=== PATIENT | female | born 1995 | race Caucasian/White ===

== ENCOUNTER 2021-11-07 15:35 | Outpatient (CLI) | payer SELFPAY ==
[2021-11-07] VITALS (13 sets, daily range): BP systolic 124–145; BP diastolic 65–90; PULSE 87–105; TEMP 37.2; O2SAT 98; BMI 38.7
[2021-11-07 17:44] LABS: Red Blood Cells-Urine 0 SEEN /hpf (0-5); White Blood Cells 0 SEEN /hpf (0-5)
[2021-11-07 17:46] LABS: Color, Urine Yellow (Yellow); Glucose, Dipstick Normal (Normal); Ketone-Dipstick Negative (Negative); Leukocyte Esterase-Dipstick Negative /ul (Negative); Nitrite-Dipstick Negative (Negative); Occult Blood-Urine Negative /ul (Negative); Protein-Dipstick Negative (Negative); Specific Gravity, Urine 1.015 (1.002-1.030); Urine Bilirubin Dipstick Negative (Negative); Urine Clarity Sl. Cloudy (Clear); Urine Urobilinogen Normal (Normal); Urine pH 6.5 (5.0 - 8.0)
[2021-11-07 17:47] LABS: Absolute Neutrophil Count 10.4 X10^3/uL (2.0-7.7); Basophil# 0.05 X10^3/uL; Basophil% 0.4 % (0-1); Eosinophil# 0.05 X10^3/uL; Eosinophils% 0.4 % (0-5); Hematocrit 38.3 % (37-47); Hemoglobin 13.5 g/dL (12.0-15.0); Lymphocyte % 12.8 % (19-41); Mean Corp Hgb Conc 35.2 g/dL (32-36); Mean Corpuscular Hgb 32.5 pg (27.0-32.0); Mean Corpuscular Volume 92.3 fL (81-99); Mean Platelet Vol. 11.4 fl (6.2-12.0); Monocyte# 0.94 X10^3/uL; Monocyte% 7.1 % (0-10); NRBC Flagged by Analyzer 0 % (0-5); Neutrophil # 10.41 X10^3/uL (2.7-7.7); Neutrophil % 78.2 % (47-70); Platelet Count 158 K/mm3 (150-450); RBC Distribution Width CV 12.8 % (11.6-14.6); RBC Distribution Width SD 43.2 fl (35.1-43.9); Red Blood Count 4.15 M/mm3 (4.2-5.4); White Blood Count 13.3 K/mm3 (4.4-11.0)
[2021-11-07 17:56] LABS: Mucous, Urine 1+ /hpf (<or=2+); Squamous Epithelial Cells - UA 0-5 SEEN /hpf (5-10)
[2021-11-07 17:57] LABS: Bacteria 1+ /hpf (None Seen)
[2021-11-07 18:06] LABS: Protein, Urine (Random) 13.2 mg/dL (<11.9); Protein:Creat Ratio 165 mg/g CRE (0-200)
[2021-11-07 18:32] LABS: AST(SGOT) 14 U/L (15-37); Alanine Aminotransfer ALT/SGPT 37 U/L (13-56); EST Glomerular Filtration Rate 158 mL/min (>60); Est Glom Filt Rate - Afr Amer 191 mL/min (>60); Estimated Creatinine Clearance 133.67 ml/min; Uric Acid 3.8 mg/dL (2.6-6.0)
[2021-11-07 19:17] LABS: HIV - WCH Non-Reactive (Nonreactive); Hepatitis B Surface Antigen Non-Reactive (Nonreactive); Hepatitis C Antibody Non-Reactive (Nonreactive)
[2021-11-08 17:21] LABS: 24 Hour Urine Protein 247.9 mg/24HR (<150 MG/24HR); 24HR. UA Prot. Total Volume 1850 mL; Urine Protein (24 Hour) 13.4 mg/dL (<11.9)
--- NOTE | 2021-11-09 11:17 | OB.TRI.PN_ITS ---
Progress Notes Progress Note: at 30 weeks 3 days presented to office to establish care. Limited care with iap displays analyst. Upon arrival to office blood pressure elevated 159/90. No headache, scotoma. No vaginal bleeding, fluid leakage or signs of labor. Patient states she was informed previously (prior to 2014) that she had essential HTN and possibly due to neurofibromatosis but thinks it is whitecoat HTN. Denies any other concerns. Sent for evaluation of blood pressure and serial blood pressure monitoring, preeclampsia labs, and further evaluation. Laboratory Studies: Laboratory Tests 11/07/21 11/07/21 11/07/21 Range/Units 17:10 17:10 17:10 WBC (4.4-11.0) K/mm3 RBC (4.2-5.4) M/mm3 Hgb (12.0-15.0) g/dL Hct (37-47) % MCV (81-99) fL MCH (27.0-32.0) pg MCHC (32-36) g/dL RDW Std Deviation (35.1-43.9) fl RDW Coeff of Jose (11.6-14.6) % Plt Count (150-450) K/mm3 MPV (6.2-12.0) fl Immature Gran % (Auto) (0.0-0.9) % Neut % (Auto) (47-70) % Lymph % (Auto) (19-41) % [place] % (Auto) (0-10) % Eos % (Auto) (0-5) % Baso % (Auto) (0-1) % Absolute Neuts (auto) (2.0-7.7) X10^3/uL Absolute Lymphs (auto) (0.83-4.51) X10^3/uL Nucleated RBC % (0-5) % Creatinine 0.50 L (0.55-1.02) mg/dL Estim Creat Clear Calc 133.67 ml/min Est GFR (MDRD) Af Amer 191 (>60) mL/min Est GFR (MDRD) Non-Af 158 (>60) mL/min Uric Acid 3.8 (2.6-6.0) mg/dL AST 14 L (15-37) U/L ALT 37 (13-56) U/L Urine Color (Yellow) Urine Clarity (Clear) Urine pH (5.0 - 8.0) Ur Specific Viola (1.002-1.030) Urine Protein (Negative) mg/dl Urine Glucose (UA) (Normal) mg/dl Urine Ketones (Negative) mg/dl Urine Occult Blood (Negative) /ul Urine Nitrite (Negative) Urine Bilirubin (Negative) mg/dL Urine Urobilinogen (Normal) mg/dl Ur Leukocyte Esterase (Negative) /ul Urine RBC (0-5) /hpf Urine WBC (0-5) /hpf Ur Squamous Epith Cells (5-10) /hpf Urine Bacteria (None Seen) /hpf Urine Mucus (<or=2+) /hpf U Random Total Protein 13.2 H (<11.9) mg/dL Urine Collection Time (24.0) HOURS Timed Urine Volume mL Urine Creatinine 80.10 (NO RANGE EST.) mg/dL Ur Total Protein 24 Hr (<150 MG/24HR) mg/24HR Protein/Creatinin Ratio 165 (0-200) mg/g CRE Urine Total Protein (<11.9) mg/dL Hep Bs Antigen Non-Reactive (Nonreactive) Hepatitis C Antibody Non-Reactive (Nonreactive) HIV 1&2 Antibody Non-Reactive (Nonreactive) Blood Type Antibody Screen 11/07/21 11/07/21 11/07/21 Range/Units 17:10 17:10 17:10 WBC 13.3 H (4.4-11.0) K/mm3 RBC 4.15 L (4.2-5.4) M/mm3 Hgb 13.5 (12.0-15.0) g/dL Hct 38.3 (37-47) % MCV 92.3 (81-99) fL MCH 32.5 H (27.0-32.0) pg MCHC 35.2 (32-36) g/dL RDW Std Deviation 43.2 (35.1-43.9) fl RDW Coeff of Jose 12.8 (11.6-14.6) % Plt Count 158 (150-450) K/mm3 MPV 11.4 (6.2-12.0) fl Immature Gran % (Auto) 1.100 H (0.0-0.9) % Neut % (Auto) 78.2 H (47-70) % Lymph % (Auto) 12.8 L (19-41) % [place] % (Auto) 7.1 (0-10) % Eos % (Auto) 0.4 (0-5) % Baso % (Auto) 0.4 (0-1) % Absolute Neuts (auto) 10.4 H (2.0-7.7) X10^3/uL Absolute Lymphs (auto) 1.70 (0.83-4.51) X10^3/uL Nucleated RBC % 0 (0-5) % Creatinine (0.55-1.02) mg/dL Estim Creat Clear Calc ml/min Est GFR (MDRD) Af Amer (>60) mL/min Est GFR (MDRD) Non-Af (>60) mL/min Uric Acid (2.6-6.0) mg/dL AST (15-37) U/L ALT (13-56) U/L Urine Color Yellow (Yellow) Urine Clarity Sl. Cloudy (Clear) Urine pH 6.5 (5.0 - 8.0) Ur Specific Viola 1.015 (1.002-1.030) Urine Protein Negative (Negative) mg/dl Urine Glucose (UA) Normal (Normal) mg/dl Urine Ketones Negative (Negative) mg/dl Urine Occult Blood Negative (Negative) /ul Urine Nitrite Negative (Negative) Urine Bilirubin Negative (Negative) mg/dL Urine Urobilinogen Normal (Normal) mg/dl Ur Leukocyte Esterase Negative (Negative) /ul Urine RBC 0 SEEN (0-5) /hpf Urine WBC 0 SEEN (0-5) /hpf Ur Squamous Epith Cells 0-5 SEEN (5-10) /hpf Urine Bacteria 1+ (None Seen) /hpf Urine Mucus 1+ (<or=2+) /hpf U Random Total Protein (<11.9) mg/dL Urine Collection Time (24.0) HOURS Timed Urine Volume mL Urine Creatinine (NO RANGE EST.) mg/dL Ur Total Protein 24 Hr (<150 MG/24HR) mg/24HR Protein/Creatinin Ratio (0-200) mg/g CRE Urine Total Protein (<11.9) mg/dL Hep Bs Antigen (Nonreactive) Hepatitis C Antibody (Nonreactive) HIV 1&2 Antibody (Nonreactive) Blood Type A POSITIVE Antibody Screen NEGATIVE 11/07/21 Range/Units 16:00 WBC (4.4-11.0) K/mm3 RBC (4.2-5.4) M/mm3 Hgb (12.0-15.0) g/dL Hct (37-47) % MCV (81-99) fL MCH (27.0-32.0) pg MCHC (32-36) g/dL RDW Std Deviation (35.1-43.9) fl RDW Coeff of Jose (11.6-14.6) % Plt Count (150-450) K/mm3 MPV (6.2-12.0) fl Immature Gran % (Auto) (0.0-0.9) % Neut % (Auto) (47-70) % Lymph % (Auto) (19-41) % [place] % (Auto) (0-10) % Eos % (Auto) (0-5) % Baso % (Auto) (0-1) % Absolute Neuts (auto) (2.0-7.7) X10^3/uL Absolute Lymphs (auto) (0.83-4.51) X10^3/uL Nucleated RBC % (0-5) % Creatinine (0.55-1.02) mg/dL Estim Creat Clear Calc ml/min Est GFR (MDRD) Af Amer (>60) mL/min Est GFR (MDRD) Non-Af (>60) mL/min Uric Acid (2.6-6.0) mg/dL AST (15-37) U/L ALT (13-56) U/L Urine Color (Yellow) Urine Clarity (Clear) Urine pH (5.0 - 8.0) Ur Specific Viola (1.002-1.030) Urine Protein (Negative) mg/dl Urine Glucose (UA) (Normal) mg/dl Urine Ketones (Negative) mg/dl Urine Occult Blood (Negative) /ul Urine Nitrite (Negative) Urine Bilirubin (Negative) mg/dL Urine Urobilinogen (Normal) mg/dl Ur Leukocyte Esterase (Negative) /ul Urine RBC (0-5) /hpf Urine WBC (0-5) /hpf Ur Squamous Epith Cells (5-10) /hpf Urine Bacteria (None Seen) /hpf Urine Mucus (<or=2+) /hpf U Random Total Protein (<11.9) mg/dL Urine Collection Time 24.0 (24.0) HOURS Timed Urine Volume 1850 mL Urine Creatinine (NO RANGE EST.) mg/dL Ur Total Protein 24 Hr 247.9 H (<150 MG/24HR) mg/24HR Protein/Creatinin Ratio (0-200) mg/g CRE Urine Total Protein 13.4 H (<11.9) mg/dL Hep Bs Antigen (Nonreactive) Hepatitis C Antibody (Nonreactive) HIV 1&2 Antibody (Nonreactive) Blood Type Antibody Screen Assessment & Plan (1) Chronic hypertension affecting : (2) Limited care: PLAN: Plan 1) PN labs, non completed this 2) preeclampsia labs normal. Will complete 24 hr urine 3) BP mild range. Will check BP at home and return to office next week 4) Preeclampsia reviewed and when to call by nursing staff 5) D/C home. Plan of care reviewed with
[2021-11-10 08:37] LABS: Rubella IgG Reactive (Nonreactive); Syphilis Antibodies Non-reactive
== END 2021-11-07 18:50 | disposition home or self-care (01) ==
LOC: WPOUT 15:53 → WP 15:54
PROVIDERS: Visit Provider Advanced Practice Midwife
DX: O10.913 Unspecified pre-existing hypertension complicating pregnancy, third trimester (principal); O09.33 Supervision of pregnancy with insufficient antenatal care, third trimester; Z3A.30 30 weeks gestation of pregnancy
CPT/HCPCS: 36415; 59025; 59050; 81001; 82565; 82570; 84156; 84450; 84460; 84550; 85025; 86703; 86762; 86780; 86803; 86850; 86900; 86901; 87340; 99218; G0378

== ENCOUNTER 2021-12-30 16:00 | Inpatient (IN) | payer SELFPAY ==
[2021-12-30] VITALS (17 sets, daily range): BP systolic 126–158; BP diastolic 61–100; PULSE 90–126; TEMP 36.6–36.8; O2SAT 98–99; BMI 38.5
[2021-12-30] MEDS: Lactated Ringers 1,000 ML 50 ML IV (14:25)
[2021-12-30 15:51] LABS: Hematocrit 41.3 % (37-47); Hemoglobin 14.3 g/dL (12.0-15.0); Mean Corp Hgb Conc 34.6 g/dL (32-36); Mean Corpuscular Hgb 31.8 pg (27.0-32.0); Mean Platelet Vol. 10.8 fl (6.2-12.0); Platelet Count 207 K/mm3 (150-450); RBC Distribution Width CV 12.5 % (11.6-14.6); Red Blood Count 4.49 M/mm3 (4.2-5.4); White Blood Count 14.3 K/mm3 (4.4-11.0)
[2021-12-30 16:06] LABS: AST(SGOT) 19 U/L (15-37); Alanine Aminotransfer ALT/SGPT 25 U/L (13-56); Creatinine, Serum 0.76 mg/dL (0.55-1.02); EST Glomerular Filtration Rate 97 mL/min (>60); Est Glom Filt Rate - Afr Amer 117 mL/min (>60); Estimated Creatinine Clearance 87.94 ml/min; Uric Acid 4.8 mg/dL (2.6-6.0)
--- NOTE | 2021-12-30 16:42 | PCM.HP.OB ---
HPI - General General Date of Admission: 12/30/21 HPI Narrative KEITH HUSBANDS, is a 26 F who presents at 38 weeks for medically indicated induction of labor for chronic hypertension. Was planning home but blood pressure continuing to increase at home. Seen in office today and BP 180/96 and sent for induction of labor. History complicated by chronic hypertension, neurofibromatosis and limited care. Has been seeing mosaic floor layer for most of and one visit for co-care. [facility] Medical History (Updated 12/30/21 @ 18:32 by Maine Ricks) Chronic hypertension Neurofibromatosis Home Medications ascorbate [id number] 1,000 mg oral powder effervescent pakt (Vit C(ascorb.calcium)(mv-mins)) 1 ea PO DAILY pregancy 11/07/21 [History Last Taken 12/30/21 06:00] docosahexaenoic acid 200 mg capsule 200 mg PO BID 11/07/21 [History Last Taken 12/30/21 06:00] lactobacillus combination no.4 3 billion cell capsule (Probiotic) 3,000 mmu cells PO DAILY 11/07/21 [History Last Taken 12/30/21 06:00] magnesium 4 tab PO DAILY 11/07/21 [History Last Taken 11/07/21 11:30 1 tab] milk thistle 200 mg capsule 300 mg PO QHS liver 11/07/21 [History Last Taken 12/30/21 06:00] prenat.vits,sarai,xxz-kjkj-upmmj 3 tab PO DAILY 11/07/21 [History Last Taken 12/30/21 06:00] vit D3-folic acid-vit B2-B6-B12 2,000 unit-800 mcg-0.32 mg tablet 2 tab PO DAILY 11/07/21 [History Last Taken 12/30/21 06:00] [id number] 18 mg-10 mg-45 mg-5 mg-250 mg tablet 1 tab PO DAILY 11/07/21 [History Last Taken 12/30/21 06:00] Allergy/AdvReac Type Severity Reaction Status Date / Time Sulfa (Sulfonamide Allergy Rash Verified 12/30/21 15:18 Antibiotics) Surgical History (Updated 12/30/21 @ 16:17 by Maine Ricks) History of surgery Social History Smoking Status: Never smoker History Elective abortions Hx Para 0 Spontaneous abortions Hx # Term Pregnancies Ectopic pregnancies Hx # Pregnancies Multiple births # of living children NST FHR Rate Baby A Baseline: 145 Variability:: Moderate Accelerations:: 15 x 15 Decelerations:: None FHR Category:: Category I Uterine Activity:: None ROS Constitutional Constitutional: Reports systems reviewed and no addt'l complaints, except as documented; Denies headache(s) Eyes Eyes: Denies acute decrease in peripheral vision, blurry vision or change in vision ENT HEENT: Reports systems reviewed and no addt'l complaints, except as documented Cardiovascular Cardiovascular: Denies chest pain or dizziness Respiratory/Chest Respiratory/Chest: Denies cough, dyspnea, dyspnea on exertion, shortness of breath at rest or shortness of breath with exertion Gastrointestinal Gastrointestinal: Denies abdominal pain, diarrhea, nausea or vomiting Genitourinary Genitourinary: Denies abdominal discomfort Musculoskeletal Musculoskeletal: Denies limited range of motion Integumentary Integumentary: Reports systems reviewed and no addt'l complaints, except as documented Neurologic Neurologic: Reports systems reviewed and no addt'l complaints, except as documented Psychiatric Psychiatric: Reports systems reviewed and no addt'l complaints, except as documented Endocrine Endocrinology: Reports systems reviewed and no addt'l complaints, except as documented Hematologic/Lymphatic Hematologic/Lymphatic: Reports systems reviewed and no addt'l complaints, except as documented Allergic/Immunologic Allergic/Immunologic: Reports systems reviewed and no addt'l complaints, except as documented Vital Signs Vital Signs Vital Signs: 12/30/21 14:52 12/30/21 14:54 12/30/21 14:54 Temperature 98.2 F Pulse Rate 116 H Blood Pressure 158/87 H BP Systolic 158 BP Diastolic 87 12/30/21 15:06 12/30/21 15:06 12/30/21 15:22 Temperature Pulse Rate 116 H Blood Pressure 151/90 H 135/85 H BP Systolic 151 135 BP Diastolic 90 85 12/30/21 15:22 12/30/21 15:52 12/30/21 15:52 Temperature Pulse Rate 113 H 116 H Blood Pressure 144/100 H BP Systolic 144 BP Diastolic 100 12/30/21 15:54 12/30/21 15:54 12/30/21 16:06 Temperature Pulse Rate 126 H Blood Pressure 138/93 H 145/88 H BP Systolic 138 145 BP Diastolic 93 88 12/30/21 16:06 12/30/21 16:21 12/30/21 16:21 Temperature Pulse Rate 105 H 104 H Blood Pressure 149/83 H BP Systolic 149 BP Diastolic 83 12/30/21 16:36 12/30/21 16:36 Temperature Pulse Rate 108 H Blood Pressure 140/95 H BP Systolic 140 BP Diastolic 95 Weight Weight: 210 lb 15.718 oz Body Mass Index (BMI) 38.5 Physical Exam Const alert and oriented x3 General Appearance: cooperative Orientation / Consciousness: awake, oriented to person, oriented to place and oriented to time Exam Limitations: no limitations HEENT normocephalic Head and Scalp: normal to inspection, normocephalic and atraumatic Face and Sinus: normal facial exam Eyes General Eye: normal appearance of both eyes Neck full ROM Chest Chest: symmetrical chest wall rise Resp normal respiratory effort and normal air movement Auscultation: clear to auscultation bilaterally Cardio regular rate, regular rhythm, S1 normal heart sound, S2 normal heart sound, no murmurs, no rub, no gallops and no clicks GI normal to inspection, nondistended, normoactive bowel sounds and non-tender appearance of the vagina normal Bladder / Kidney Exam: no CVA tenderness Back/Spine normal ROM Extremity normal to inspection and full ROM Skin no rashes or lesions noted Neuro oriented x3, CN's II-XII intact bilaterally and moves all extremities Sensorium / Orientation: awake, alert and oriented to person Motor Exam: clonus absent Deep Tendon Reflexes: Rt Patellar (L4): 2+ and Lt Patellar (L4): 2+ Labs Labs Labs: Blood Type A POSITIVE Antibody Screen NEGATIVE Hct 41.3 % (37-47) Hgb 14.3 g/dL (12.0-15.0) Syphilis Total Ab Non-reactive Rubella IgG Antibody Reactive (Nonreactive) Hep Bs Antigen Non-Reactive (Nonreactive) HIV 1&2 Antibody Non-Reactive (Nonreactive) GBS in urine positive Declined GC/CT testing 2hr test completed per patient and normal on 09/17/21, do not have results. Assessment & Plan (1) Chronic hypertension affecting : (2) Limited care: (3) Neurofibromatosis, peripheral, NF1: PLAN: Plan 1) Admit to labor and delivery 2) Routine labs 3) Preeclampsia labs CMP, CBC, uric acid, LDH and urine P/C ratio 4) Continuous EFM 5) Recommend cytotec with main for cervical ripening and then pitocin per protocol. Unable to place main due to dilation. PO cytotec at this time. 6) Epidural for pain management if blood pressure remain elevated 7) GBS positive, patient informed refusal after discussing risks of untreated GBS, risks to baby and possible . 8) notified of admission and plan of care at this time.
[2021-12-30] MEDS: miSOPROStol 25 MCG TABLET PO ×2 (17:43→22:16)
[2021-12-30 18:37] LABS: Protein, Urine (Random) 29.2 mg/dL (<11.9); Protein:Creat Ratio 138 mg/g CRE (0-200)
[2021-12-30 20:06] LABS: Chlamydia Trachomatis by PCR Negative (Negative); Neisserai gonorrhoeae by PCR Negative (Negative); Probe Check PASS; Sample Adequacy Control PASS; Specimen Processing Control PASS
[2021-12-31] VITALS (48 sets, daily range): BP systolic 117–177; BP diastolic 60–100; PULSE 82–111; TEMP 36.2–37.1; O2SAT 93–100
[2021-12-31] MEDS: miSOPROStol 25 MCG TABLET PO (04:30)
--- NOTE | 2021-12-31 05:09 | NURSING ---
COVID testing discussed with pt. Pt would like to refuse testing at this time
[2021-12-31] MEDS: Oxytocin 15 Units/NS 250ml 15 UNITS/250 ML IV.SOLN 2 UNITS IV (08:40)
[2021-12-31] MEDS: 0.9% Normal Saline Single 100 ML IV.SOLN. INTRA-UTER (08:45)
[2021-12-31] MEDS: Lactated Ringers 1,000 ML 50 ML IV (08:46)
--- NOTE | 2021-12-31 09:59 | PCM.PN.OB ---
Subjective Subjective Coping well in bed. Rested through night. at bedside. Objective Data Objective Data Vital Signs: Vital Signs Temp Pulse BP Pulse Ox 97.3 F L 92 163/96 H 98 12/31/21 09:53 12/31/21 09:53 12/31/21 09:53 12/31/21 09:53 Weight: 210 lb 15.718 oz Body Mass Index (BMI) 38.5 Intake & Output: Intake and Output for Last 24 Hours 12/29/21 12/30/21 12/31/21 23:59 23:59 23:59 Intake Total 919.24 / 919.24 Balance 919.24 / 919.24 Lab / Micro Data Result Diagrams: 12/30/21 13:40 12/30/21 13:40 Labs: Laboratory Results - last 24 hr 12/30/21 13:40: WBC 14.3 H, RBC 4.49, Hgb 14.3, Hct 41.3, MCV 92.0, MCH 31.8, MCHC 34.6, RDW Std Deviation 42.0, RDW Coeff of Jose 12.5, Plt Count 207, MPV 10.8 12/30/21 13:40: Creatinine 0.76, Estim Creat Clear Calc 87.94, Est GFR (MDRD) Af Amer 117, Est GFR (MDRD) Non-Af 97, Uric Acid 4.8, AST 19, ALT 25 12/30/21 16:03: Blood Type A POSITIVE, Antibody Screen NEGATIVE 12/30/21 18:00: U Random Total Protein 29.2 H, Urine Creatinine 211.00, Protein/Creatinin Ratio 138 12/30/21 18:00: Chlam trachomat DNA PCR Negative, N.gonorrhoeae DNA (PCR) Negative Physical Exam Narrative 1cm/50%/-4. Stokes catheter inserted transcervically with stylus. Tolerated well. NST FHR Rate Baby A Baseline: 155 Variability:: Moderate Accelerations:: 15 x 15 Decelerations:: Variable FHR Category:: Category II Uterine Activity:: Irregular Assessment & Plan (1) Chronic hypertension affecting : (2) Encounter for induction of labor: PLAN: Plan 1) Stokes with pitocin for management. No cytotec due to contractions and variable decels. Category 2 FHT 2) Pain management upon request 3) notified of patient status
--- NOTE | 2021-12-31 12:42 | PCM.PN.BLA ---
Progress Note pt seen in room- up ambulating- states pain better when moving. main out. FHR Category 1. plan to continue pitocin. Pt prefers no AROM unless necessary. not planning epidural unless needed.
[2021-12-31] MEDS: LACTATED RINGERS 500 ML 999 ML IV ×2 (15:39→19:40)
--- NOTE | 2021-12-31 20:10 | PN.OBGYN_ITS ---
Subjective Subjective Resting in bed with substation designer and . Breathing through contractions. Requesting epidural for pain management Objective Data Objective Data Vital Signs: Vital Signs Temp Pulse BP Pulse Ox 98.2 F 105 H 147/93 H 99 12/31/21 19:05 12/31/21 20:07 12/31/21 19:05 12/31/21 20:07 Weight: 210 lb 15.718 oz Body Mass Index (BMI) 38.5 Intake & Output: Intake and Output for Last 24 Hours 12/29/21 12/30/21 12/31/21 23:59 23:59 23:59 Intake Total 2840.24 / 2840.24 Balance 2840.24 / 2840.24 Lab / Micro Data Result Diagrams: 12/30/21 13:40 12/30/21 13:40 NST FHR Rate Baby A Baseline: 155 Variability:: Moderate Accelerations:: 15 x 15 Decelerations:: Variable FHR Category:: Category II Uterine Activity:: Every 2-3 minutes, strong Assessment & Plan (1) Encounter for induction of labor: (2) Chronic hypertension affecting : PLAN: Plan 1) Pitocin per policy 2) Epidural per request 3) Positional changes 4) BP mild range 5) notified of patient status
[2021-12-31] MEDS: 0.9% Saline Lock 10 ML Syringe IV (20:13)
[2021-12-31] MEDS: Ondansetron 4 MG/2 ML Vial IV (20:13)
[2021-12-31] MEDS: fentaNYL-bupivacaine (epidural) 100 ML BAG EPIDURAL (20:30)
[2021-12-31] MEDS: Lactated Ringers 1,000 ML 200 ML IV (23:55)
[2022-01-01] VITALS (102 sets, daily range): BP systolic 105–166; BP diastolic 54–89; PULSE 91–132; RESP 14–16; TEMP 36.3–37.4; O2SAT 92–100
[2022-01-01] MEDS: fentaNYL-bupivacaine (epidural) 100 ML BAG EPIDURAL ×4 (00:16→17:06)
[2022-01-01] MEDS: LACTATED RINGERS 500 ML 999 ML IV (02:00)
--- NOTE | 2022-01-01 05:50 | NURSING ---
Primary RN discussed needing to obtain urine and meconium sample from for toxicology testing due to patient never having a toxicology screening. Patient was a transfer of care from external coffee shop manager. Patient is declining infant toxicology at this time. Primary RN reinforced education. Dr. Valencia supervising broker updated.
[2022-01-01] MEDS: Lactated Ringers 1,000 ML 200 ML IV ×3 (06:38→18:31)
[2022-01-01] MEDS: Penicillin G 3,000,000 Units 50 ML 100 UNITS IV ×4 (06:39→18:53)
--- NOTE | 2022-01-01 09:24 | PCM.PN.BLA ---
Progress Note AROM performed- CLEAR FLUID. /-3. IUPC placed. Narrow pelvis noted.
[2022-01-01] MEDS: Oxytocin 15 Units/NS 250ml 15 UNITS/250 ML IV.SOLN 6 UNITS IV (12:48)
--- NOTE | 2022-01-01 16:32 | PN.OBGYN_ITS ---
Subjective Subjective Patient comfortable with epidural Objective Data Objective Data Vital Signs: Vital Signs Temp Pulse BP Pulse Ox 98.1 F 103 H 140/84 H 99 01/01/22 16:02 01/01/22 16:02 01/01/22 16:02 01/01/22 15:14 Weight: 210 lb 15.718 oz Body Mass Index (BMI) 38.5 Intake & Output: Intake and Output for Last 24 Hours 12/30/21 12/31/21 01/01/22 23:59 23:59 23:59 Intake Total 4035.91 / 4035.91 2892.77 / 2892.77 Output Total 950 / 950 Balance 4035.91 / 4035.91 1942.77 / 1942.77 Lab / Micro Data Result Diagrams: 12/30/21 13:40 12/30/21 13:40 Physical Exam Narrative: cvx - 4/90/-2 NST FHR Rate Baby A Baseline: 135 Variability:: Moderate Accelerations:: 15 x 15 Decelerations:: Variable Uterine Activity:: Q 2-3 minutes Assessment & Plan (1) Chronic hypertension affecting : COMMENT: @ 38&2 PLAN: Continue pitocin induction Pain - epidural GBS positive - pcn per protocol Discussed with patient, & railroad design consultant that I have concerns about this baby delivering vaginally. She feels to have an inadequate pelvis and is making no significant cervical change. Discussed risks of prolonged induction and now is s/p rupture as well. Recommend proceeding with if no significant change at 9pm (12 hours from rupture). All questions answered. Patient states that she will think about the recommendation.
[2022-01-01] MEDS: Acetaminophen 500 MG Tablet PO (21:43)
[2022-01-01] MEDS: Sodium Citrate/Citric Acid 30 ML UDC PO (21:44)
--- NOTE | 2022-01-01 21:52 | OP.PCM_ITS ---
Maternal Data Information Final CALEB: 01/13/22 Gestational age: 38&2 Details Operative Information Date of Procedure: 01/01/22 Pre-Operative Diagnosis: (1) Failure to dilate (2) Chronic hypertension Post-Operative Diagnosis: Same Indications Narrative: Patient had been 4cm for over 17 hours and 12 hours past AROM. Her induction was started over 48 hours ago. Patient was counseled on R/B/A and agreed to proceed with section. The patient was taken to the operating room where epidural anesthesia was dosed & found to be adequate. She was prepped and draped in the dorsal supine position with a leftward tilt. A Pfannenstiel skin incision was made approximately 2 cm above the symphysis pubis and carried through to the underlying fascia with the scalpel. The fascia was incised incised in the midline and extended laterally with the Del Cid scissors. The rectus muscles were in the midline and the peritoneum was entered carefully and bluntly. The peritoneal incision was stretched and the bladder blade was inserted. Vesicouterine peritoneum was tented up, incised & then bladder flap created gently. The uterine incision was made in a low transverse fashion with the scalpel and extended superiorly and inferiorly with blunt dissection. The infant's head was brought to the incision in the flexed position and delivered without difficulty. The head was gently guided to allow delivery of the anterior and posterior shoulders. The body then delivered with fundal pressure in the standard fashion. The 3VC cord was clamped and cut in delayed fashion. The was handed off to the waiting pediatric genetic counselor. The placenta was delivered with fundal massage and gentle traction in the standard fashion. The uterus was exteriorized and cleared of clots and debris. The uterine incision was closed with #1 Vicryl suture in a running locked fashion. Monocryl suture was used in an imbricating fashion. The incision was examined and was found to be hemostatic. The uterus was returned to the abdominal cavity. After irrigating Fabricio was placed over the uterine incision as some areas were denuded (but hemostatic). The peritoneum was closed with vicryl suture in running fashion The rectus muscle was examined and any bleeding was Bovie cauterized. The fascia was closed with PDS suture in a running standard fashion. The subcutaneous tissue was examining and any bleeding was Bovie cauterized. The subcutaneous tissue was reapproximated with interrupted sutures. The skin was closed in a subcuticular fashion by the MARKET SURVEY REPRESENTATIVE while I was present in the labor & delivery unit. The remainder of the procedure was performed by me with assistance. All sponge, lap, and needle counts were correct. The patient was taken to her room for recovery in a stable condition. Classification: JAE Procedure Type: low transverse equipment records supervisor #1: Chikis Lazar Type of Anesthesia: Epidural Antibiotic Given: Ancef 2 grams IV x1 and Zithromax 500 mg/5 mL X1 Drain: Stokes to straight drain Estimated Blood Loss: 800ml Fluids Replaced: 1500ml Procedure Start Time: 22:21 Procedure Stop Time: 23:20 Findings Description of Procedure: Normal maternal uterus and left adnexa. Right adnexa enlarged with cystic mass. Pictures taken with patient's verbal consent and sent via secure email. Presentation: Positive for Vertex Amniotic Membrane Rupture Type: Artificial Amniotic Fluid Description: Clear Placental Delivery Description: Manual Removal Placenta Disposition: [facility] Cord Vessel Description: 3 Vessels Cord Entanglement: None Infant A Gender: Female (1 minute): 9 (5 minute): 9 Delayed Cord Clamping: Yes Complications Complications: None
[2022-01-01] MEDS: Cefazolin 2 GM in 0.9% Normal Saline 100 ML IV (22:08)
--- NOTE | 2022-01-01 23:35 | NURSING ---
Epidural catheter removed per this RN. Blue tip intact.
[2022-01-01] MEDS: Oxytocin 15 Units/NS 250ml 15 UNITS/250 ML IV.SOLN 83 UNITS IV (23:42)
[2022-01-02] VITALS (21 sets, daily range): BP systolic 109–140; BP diastolic 62–89; PULSE 73–99; RESP 14–20; TEMP 36.1–36.7; O2SAT 92–100
[2022-01-02] MEDS: Ketorolac 30 MG/ML Syringe IV ×4 (00:04→18:42)
[2022-01-02] MEDS: Lactated Ringers 1,000 ML 100 ML IV (02:48)
[2022-01-02 05:42] LABS: Hematocrit 31.5 % (37-47); Hemoglobin 10.7 g/dL (12.0-15.0); Mean Corpuscular Hgb 31.8 pg (27.0-32.0); Mean Corpuscular Volume 93.5 fL (81-99); Mean Platelet Vol. 13.5 fl (6.2-12.0); Platelet Count 143 K/mm3 (150-450); RBC Distribution Width CV 12.7 % (11.6-14.6); RBC Distribution Width SD 43.8 fl (35.1-43.9); Red Blood Count 3.37 M/mm3 (4.2-5.4); White Blood Count 16.6 K/mm3 (4.4-11.0)
--- NOTE | 2022-01-02 05:46 | NURSING ---
pt due to ambulate post c/s for first time. RN does not feel it is safe at this time d/t pt being drowsy. SCD's are still being utilized in bed. RN will reassess in 1 hour.
[2022-01-02] MEDS: 0.9% Saline Lock 10 ML Syringe IV ×4 (06:07→18:42)
[2022-01-02] MEDS: Acetaminophen 500 MG Tablet 1000 MG PO ×3 (06:48→18:51)
--- NOTE | 2022-01-02 08:10 | NURSING ---
Pt first post op ambulation on 01/02 at 0530 and tolerated well. Pt stood at side of bed for several minutes.
[2022-01-02] MEDS: Senna/Docusate Sodium 1 Tablet PO (09:50)
[2022-01-02] MEDS: Enoxaparin 40 MG/0.4 ML Syringe SC (09:51)
--- NOTE | 2022-01-02 12:58 | PCM.PN.OB ---
Subjective Subjective Patient is doing well. Pain is well controlled. Lochia is normal. She is ambulating and voiding without difficulty. Breast-feeding without complaints. Objective Data Objective Data Vital Signs: Vital Signs Temp Pulse Resp BP Pulse Ox O2 Del Method 97.4 F L 90 16 138/84 H 92 Room Air 01/02/22 12:11 01/02/22 12:11 01/02/22 12:11 01/02/22 12:11 01/02/22 10:11 01/02/22 10:11 Oxygen Delivery Method Room Air Weight: 210 lb 15.718 oz Body Mass Index (BMI) 38.5 Intake & Output: Intake and Output for Last 24 Hours 12/31/21 01/01/22 01/02/22 23:59 23:59 23:59 Intake Total 4035.91 / 4035.91 5873.01 / 5873.01 1278.33 / 1278.33 Output Total 1550 / 1550 1300 / 1300 Balance 4035.91 / 4035.91 4323.01 / 4323.01 -21.67 / -21.67 Lab / Micro Data Result Diagrams: 01/02/22 05:30 12/30/21 13:40 Labs: Laboratory Results - last 24 hr 01/02/22 05:30: WBC 16.6 H, RBC 3.37 L, Hgb 10.7 L, Hct 31.5 L, MCV 93.5, MCH 31.8, MCHC 34.0, RDW Std Deviation 43.8, RDW Coeff of Jose 12.7, Plt Count 143 L, MPV 13.5 H Physical Exam Const alert and no apparent distress General Appearance: comfortable HEENT normocephalic GI soft to palpation and non-distended GI Narrative: ATTP, dressing c/d/i Assessment & Plan (1) Chronic hypertension affecting : COMMENT: @ 38&2 (2) Post-operative state: (3) S/P section: PLAN: She is postop day 1 from a section for failure to progress. Discussed she would not be a good TOLAC candidate in the future, and would not recommend a home . She is doing well today. Anticipate discharge tomorrow.
[2022-01-03] MEDS: Ibuprofen 600 MG Tablet PO ×2 (01:16→07:06)
[2022-01-03] MEDS: Acetaminophen 500 MG Tablet 1000 MG PO ×2 (01:17→07:06)
[2022-01-03 01:25] VITALS: BP 129/85; PULSE 92; RESP 18; TEMP 36.4; O2SAT 97
[2022-01-03 07:48] VITALS: BP 139/85; PULSE 81; RESP 18; TEMP 36.3; O2SAT 98
[2022-01-03] MEDS: Enoxaparin 40 MG/0.4 ML Syringe SC (10:04)
[2022-01-03] MEDS: Senna/Docusate Sodium 1 Tablet PO (10:05)
--- NOTE | 2022-01-03 10:55 | PCM.PN.OB ---
Subjective Subjective Patient was seen, and she was dressed and ready for discharge going over discharge instructions with nurse. Nurse reports she has been doing well without complaints. Objective Data Objective Data Vital Signs: Vital Signs Temp Pulse Resp BP Pulse Ox O2 Del Method 97.4 F L 81 18 139/85 H 98 Room Air 01/03/22 07:48 01/03/22 07:48 01/03/22 07:48 01/03/22 07:48 01/03/22 07:48 01/03/22 07:48 Oxygen Delivery Method Room Air Weight: 210 lb 15.718 oz Body Mass Index (BMI) 38.5 Intake & Output: Intake and Output for Last 24 Hours 01/01/22 01/02/22 01/03/22 23:59 23:59 23:59 Intake Total 5873.01 / 5873.01 1278.33 / 1278.33 Output Total 1550 / 1550 1900 / 1900 Balance 4323.01 / 4323.01 -621.67 / -621.67 Lab / Micro Data Result Diagrams: 01/02/22 05:30 12/30/21 13:40 Assessment & Plan (1) S/P section: PLAN: POD#2 from a section. Discharge home with follow-up in a week for blood pressure check and incision check. Reviewed preeclampsia precautions. (2) Post-operative state: (3) Chronic hypertension affecting : COMMENT: @ 38&2
--- NOTE | 2022-01-03 10:58 | DCINST_ITS ---
Discharge Instructions Diet Discharge Diet: No restrictions Activity Discharge Activity: May Not Drive and May Shower May resume sexual activity in: 6 weeks Ice area for (Minutes): 15 Weight Bearing Status: Weight bearing as tolerated Lifting Restrictions: nothing heavier than baby Dressing / Incision Call your doctor if your incision/area has: Continuous Slow Oozing, Sudden Increased Bleeding, Increased Pain/ Swelling, Increased Redness, Foul Smelling Discharge and Swelling at the incision site Call your doctor if you observe: Fever of 101 or Higher, Coldness, Increased Pain, Numbness or Tingling, Change in Color, Inability to urinate, Inability to have a bowel movement, Using more than 1 pad per hour, Shortness of breath, Dizziness, Fainting spells, Swelling in the ankles, Chest pain, Increased palpitations (irregular heartbeat), Calf discomfort and Uncontrolled pain Suture Line Care: Avoid Pulling/Pushing and Avoid Pinching/Bending Remove Dressing in: leave in place till F/U Cleanse incision/area with: Soap & Water Follow Up Care Please Follow Up With: Mehul Salazar MD When: 1 week for incision and BP check Test Results: Test results from this visit will be discussed in further detail at your follow- up appointment, if applicable. Discharge Plan Admission Admit Date/Time: 12/30/21 16:00 Primary Reason for Your Visit: surgery Attending Provider: Mehul Salazar Primary Care Provider: Care PhysicianBeena Primary Discharge Orders/Prescriptions Prescriptions: New oxycodone-acetaminophen [Percocet] 5-325 mg tablet 1 tab PO Q6H PRN (Reason: pain) 7 Days Qty: 10 0RF ibuprofen 600 mg tablet 600 mg PO Q6H PRN (Reason: pain) Qty: 30 0RF Continued milk thistle 200 mg Capsule 300 mg PO QHS Rx Instructions: give with meal/snack prenat.vits,sarai,uaq-vclf-wliow Tablet 3 tab PO DAILY magnesium Tablet 4 tab PO DAILY docosahexaenoic acid 200 mg Capsule 200 mg PO BID Vit C(ascorb.calcium)(mv-mins) 1,000 mg Powder Effervescent In Packet 1 ea PO DAILY vit B1 ce-E8-P5-U9-J8-Q69-C-FA 83-78-17-5-250 mg Tablet 1 tab PO DAILY vit D3-folic qlld-I7-E8-B12 2,000-800-0.32 unit-mcg-mg Tablet 2 tab PO DAILY Probiotic 3 billion cell Capsule 3,000 mmu cells PO DAILY Rx Instructions: administer with a meal Referrals / Follow Up: Care Physician,No Primary [Primary Care Provider] - Disposition Disposition (needs filled in before D/C Order can be placed): Home, Self Care
--- NOTE | 2022-01-08 08:17 | PCM.DC.SUM ---
Providers Date of Admission: 12/30/21 Date of Discharge: 01/03/22 Primary Care Physician: No Primary Care Phys Reason For Visit: DELIVERY Diagnosis Discharge Diagnosis (1) S/P section: Status: Acute Code(s): Z98.891 - History of uterine scar from previous surgery Plan: POD#2 from a section. Discharge home with follow-up in a week for blood pressure check and incision check. Reviewed preeclampsia precautions. (2) Post-operative state: Status: Acute Code(s): Z98.890 - Other specified postprocedural states (3) Chronic hypertension affecting : Status: Chronic Code(s): O10.919 - Unspecified pre-existing hypertension complicating , unspecified trimester Medications at Discharge Home Medications ascorbate rzbtifr-karvzpjx-cdj 1,000 mg oral powder effervescent pakt (Vit C(ascorb.calcium)(mv-mins)) 1 ea PO DAILY pregancy 11/07/21 docosahexaenoic acid 200 mg capsule 200 mg PO BID 11/07/21 lactobacillus combination no.4 3 billion cell capsule (Probiotic) 3,000 mmu cells PO DAILY 11/07/21 magnesium 4 tab PO DAILY 11/07/21 milk thistle 200 mg capsule 300 mg PO QHS liver 11/07/21 prenat.vits,sarai,xgz-ooym-tylwo 3 tab PO DAILY 11/07/21 vit D3-folic acid-vit B2-B6-B12 2,000 unit-800 mcg-0.32 mg tablet 2 tab PO DAILY 11/07/21 [id number]-[id number]-[id number]-M-YB 18 mg-10 mg-45 mg-5 mg-250 mg tablet 1 tab PO DAILY 11/07/21 ibuprofen 600 mg tablet 600 mg PO Q6H PRN pain #30 tabs 01/03/22 oxycodone-acetaminophen 5 mg-325 mg tablet (Percocet) 1 tab PO Q6H PRN pain 7 days #10 tabs 01/03/22 Hospital Course Operations section Summary of Care Provided Hospital Course: Pt presented for IOL for cHTN. She was planning a home but BP's were elevated so she was admitted to L&D. She had a prolonged induction despite augmentation and a narrow pelvis. Given no cervical change after over 12 hours and suspected CPD, a section was recommended. See op note for details. Her pain was well controlled, she was ambulating and voiding without difficulty on day of discharge. She was sent home on POD#2. She was counseled that she is not a good TOLAC candidate, and would recommend a repeat section with next delivery. Advised against home . Weight / BMI Weight Weight: 210 lb 15.718 oz Body Mass Index (BMI) 38.5 ABG / Lab / Microbiology Data Result Diagrams: 01/02/22 05:30 12/30/21 13:40 D/C Instructions Discharge Diet: No restrictions May resume sexual activity in: 6 weeks Ice area for (Minutes): 15 Weight Bearing Status: Weight bearing as tolerated Call your doctor if your incision/area has: Continuous Slow Oozing, Sudden Increased Bleeding, Increased Pain/ Swelling, Increased Redness, Foul Smelling Discharge and Swelling at the incision site Call your doctor if you observe: Fever of 101 or Higher, Coldness, Increased Pain, Numbness or Tingling, Change in Color, Inability to urinate, Inability to have a bowel movement, Using more than 1 pad per hour, Shortness of breath, Dizziness, Fainting spells, Swelling in the ankles, Chest pain, Increased palpitations (irregular heartbeat), Calf discomfort and Uncontrolled pain Suture Line Care: Avoid Pulling/Pushing and Avoid Pinching/Bending Cleanse incision/area with: Soap & Water Please Follow Up With: Mehul Salazar MD When: 1 week for incision and BP check Meaningful Use Info Meaningful Use Diagnoses (Choose all that apply): None applicable Discharge Plan Admission Admit Date/Time: 12/30/21 16:00 Primary Reason for Your Visit: surgery Attending Provider: Mehul Salazar Primary Care Provider: Care Physician,Beena Primary Discharge Orders/Prescriptions Prescriptions: New oxycodone-acetaminophen [Percocet] 5-325 mg tablet 1 tab PO Q6H PRN (Reason: pain) 7 Days Qty: 10 0RF ibuprofen 600 mg tablet 600 mg PO Q6H PRN (Reason: pain) Qty: 30 0RF Continued milk thistle 200 mg Capsule 300 mg PO QHS Rx Instructions: give with meal/snack prenat.vits,sarai,omi-thqm-oivah Tablet 3 tab PO DAILY magnesium Tablet 4 tab PO DAILY docosahexaenoic acid 200 mg Capsule 200 mg PO BID Vit C(ascorb.calcium)(mv-mins) 1,000 mg Powder Effervescent In Packet 1 ea PO DAILY vit B1 ai-L4-M1-[id number]-C-FA 23-65-14-5-250 mg Tablet 1 tab PO DAILY vit D3-folic uqkb-L7-C6-B12 2,000-800-0.32 unit-mcg-mg Tablet 2 tab PO DAILY Probiotic 3 billion cell Capsule 3,000 mmu cells PO DAILY Rx Instructions: administer with a meal Referrals / Follow Up: Care Physician,No Primary [Primary Care Provider] - Disposition Disposition (needs filled in before D/C Order can be placed): Home, Self Care
== END 2022-01-03 10:45 | disposition home or self-care (01) | DRG 787 ==
LOC: WPOUT 16:05 → WP 16:05
PROVIDERS: Advanced Practice Midwife; Admitting Provider Obstetrics & Gynecology; Visit Provider Obstetrics & Gynecology
DX: O62.0 Primary inadequate contractions (principal); O10.02 Pre-existing essential hypertension complicating childbirth; Q85.01 Neurofibromatosis, type 1; O99.824 Streptococcus B carrier state complicating childbirth; Z37.0 Single live birth; Z3A.38 38 weeks gestation of pregnancy; O99.892 Other specified diseases and conditions complicating childbirth; O33.9 Maternal care for disproportion, unspecified
CPT/HCPCS: 59025; 59050; 76815; 82565; 82570; 84156; 84450; 84460; 84550; 85027; 86850; 86900; 86901; 87491; 87591; 99218; J7120; A4216; G0378; J2405

== ENCOUNTER 2022-01-13 19:44 | Emergency (ER) | payer SELFPAY ==
[2022-01-13 19:45] VITALS: BP 159/103; PULSE 97; RESP 18; TEMP 36.6; O2SAT 98; BMI 34.2
== END 2022-01-13 20:10 | disposition left against medical advice (07) ==
LOC: ED 20:10
DX: Z53.21 Procedure and treatment not carried out due to patient leaving prior to being seen by health care provider (principal)

== ENCOUNTER 2022-01-13 21:20 | Inpatient (IN) | payer SELFPAY ==
[2022-01-13] VITALS (50 sets, daily range): BP systolic 122–182; BP diastolic 65–102; PULSE 64–85; RESP 15–18; TEMP 36.3–36.4; O2SAT 91–100; BMI 34.3
[2022-01-13] MEDS: 0.9% Saline Lock 10 ML Syringe IV (20:56)
[2022-01-13 21:05] LABS: Hemoglobin 13.5 g/dL (12.0-15.0); Mean Corp Hgb Conc 34.6 g/dL (32-36); Mean Corpuscular Volume 92.4 fL (81-99); Mean Platelet Vol. 9.5 fl (6.2-12.0); Platelet Count 283 K/mm3 (150-450); RBC Distribution Width CV 11.9 % (11.6-14.6); RBC Distribution Width SD 40.1 fl (35.1-43.9); Red Blood Count 4.22 M/mm3 (4.2-5.4); White Blood Count 8.3 K/mm3 (4.4-11.0)
[2022-01-13] MEDS: Labetalol (Prefilled) 20 MG/4 ML IV (21:25)
[2022-01-13 21:26] LABS: AST(SGOT) 12 U/L (15-37); Alanine Aminotransfer ALT/SGPT 27 U/L (13-56); Creatinine, Serum 0.71 mg/dL (0.55-1.02); EST Glomerular Filtration Rate 104 mL/min (>60); Est Glom Filt Rate - Afr Amer 126 mL/min (>60); Estimated Creatinine Clearance 94.13 ml/min; LDH 152 U/L (84-246); Uric Acid 4.8 mg/dL (2.6-6.0)
[2022-01-13] MEDS: Lactated Ringers 1,000 ML 15 ML IV (21:45)
[2022-01-13] MEDS: Magnesium Sulfate 4gm/100mL 4 GM/100 ML IV.SOLN. IV (21:46)
--- NOTE | 2022-01-13 21:46 | HP.PCM.OB_ITS ---
HPI - General General Date of Admission: 01/13/22 Date of Service: 01/13/22 HPI Narrative KEITH HUSBANDS, is a 26 F who presents with elevated blood pressure at home & a mild headache. [facility] Medical History (Updated 01/13/22 @ 21:[address] Mehul Salazar MD) Chronic hypertension Chronic hypertension affecting Neurofibromatosis Neurofibromatosis, peripheral, NF1 Severe pre-eclampsia, complicating the puerperium Home Medications ascorbate wmbopaq-xjhnklrd-kfd 1,000 mg oral powder effervescent pakt (Vit C(ascorb.calcium)(mv-mins)) 1 ea PO DAILY pregancy 11/07/21 [History Last Taken 12/30/21 06:00] docosahexaenoic acid 200 mg capsule 200 mg PO BID 11/07/21 [History Last Taken 12/30/21 06:00] lactobacillus combination no.4 3 billion cell capsule (Probiotic) 3,000 mmu cells PO DAILY 11/07/21 [History Last Taken 12/30/21 06:00] magnesium 4 tab PO DAILY 11/07/21 [History Last Taken 11/07/21 11:30 1 tab] milk thistle 200 mg capsule 300 mg PO QHS liver 11/07/21 [History Last Taken 12/30/21 06:00] prenat.vits,sarai,rce-lnsj-nnrga 3 tab PO DAILY 11/07/21 [History Last Taken 12/30/21 06:00] vit D3-folic acid-vit B2-B6-B12 2,000 unit-800 mcg-0.32 mg tablet 2 tab PO DAILY 11/07/21 [History Last Taken 12/30/21 06:00] gcgB9ajwcyjz-P1-J7-F0-P2-V43-O-JT 18 mg-10 mg-45 mg-5 mg-250 mg tablet 1 tab PO DAILY 11/07/21 [History Last Taken 12/30/21 06:00] ibuprofen 600 mg tablet 600 mg PO Q6H PRN pain #30 tabs 01/03/22 [Rx Last Taken Unknown] oxycodone-acetaminophen 5 mg-325 mg tablet (Percocet) 1 tab PO Q6H PRN pain 7 days #10 tabs 01/03/22 [Rx Last Taken Unknown] Allergy/AdvReac Type Severity Reaction Status Date / Time Sulfa (Sulfonamide Allergy Rash Verified 01/13/22 21:03 Antibiotics) Surgical History (Updated 01/11/22 @ 00:01 by Background Nilesh) History of surgery S/P section Social History Smoking Status: Never smoker History Elective abortions Hx Para 0 Spontaneous abortions Hx # Term Pregnancies Ectopic pregnancies Hx # Pregnancies Multiple births # of living children Vital Signs Vital Signs Vital Signs: 01/13/22 20:21 01/13/22 20:21 01/13/22 20:55 Pulse Rate 85 Blood Pressure 156/92 H 178/102 H BP Systolic 156 178 BP Diastolic 92 102 01/13/22 20:55 01/13/22 21:10 01/13/22 21:10 Pulse Rate 80 78 Blood Pressure 163/95 H BP Systolic 163 BP Diastolic 95 01/13/22 21:26 01/13/22 21:26 01/13/22 21:40 Pulse Rate 85 Blood Pressure 182/85 H 156/90 H BP Systolic 182 156 BP Diastolic 85 90 01/13/22 21:40 Pulse Rate 80 Blood Pressure BP Systolic BP Diastolic Weight Weight: 187 lb 9.6 oz Body Mass Index (BMI) 34.3 Physical Exam Const alert and oriented x3 HEENT normocephalic Chest inspection of chest normal Resp normal respiratory effort GI soft to palpation, non-tender and non-distended Inspection: incision intact and healing well Labs Labs Labs: Blood Type A POSITIVE Antibody Screen NEGATIVE Hct 39.0 % (37-47) Hgb 13.5 g/dL (12.0-15.0) Syphilis Total Ab Non-reactive Rubella IgG Antibody Reactive (Nonreactive) Hep Bs Antigen Non-Reactive (Nonreactive) HIV 1&2 Antibody Non-Reactive (Nonreactive) Assessment & Plan (1) Severe pre-eclampsia, complicating the puerperium: COMMENT: POD#12 PLAN: Patient with known chronic hypertension but not on medication. Now with severe range BP's. PreE labs normal Start hypertensive protocol wiht labetalol Magnesium sulfate for 24 hours Plan of care discussed with patient & all questions answered
[2022-01-13] MEDS: Magnesium Sulfate 20 GM/500 ML BAG IV (22:09)
[2022-01-13] MEDS: Labetalol 100 MG Tablet PO (22:17)
[2022-01-13] MEDS: Acetaminophen 500 MG Tablet 1000 MG PO (22:59)
[2022-01-14] VITALS (295 sets, daily range): BP systolic 114–162; BP diastolic 56–91; PULSE 59–97; RESP 14–18; TEMP 36.1–37; O2SAT 83–100
[2022-01-14] MEDS: Ibuprofen 600 MG Tablet PO ×2 (00:02→20:19)
[2022-01-14] MEDS: Magnesium Sulfate 20 GM/500 ML BAG IV (08:19)
--- NOTE | 2022-01-14 08:42 | PCM.PN.OB ---
Subjective Subjective Patient seen at bedside. Readmit last night for preeclampsia post day 12. Feeling tired today. Still has slight headache, rates 2/10 on pain scale. Objective Data Objective Data Vital Signs: Vital Signs Temp Pulse Resp BP Pulse Ox O2 Del Method 97.0 F L 84 14 144/87 H 100 Room Air 01/14/22 07:00 01/14/22 08:38 01/14/22 08:00 01/14/22 08:10 01/14/22 08:38 01/14/22 08:00 Oxygen Delivery Method Room Air Weight: 187 lb 9.6 oz Body Mass Index (BMI) 34.3 Intake & Output: Intake and Output for Last 24 Hours 01/12/22 01/13/22 01/14/22 23:59 23:59 23:59 Intake Total 270 / 270 1010 / 1010 Output Total 450 / 450 Balance 270 / 270 560 / 560 Lab / Micro Data Result Diagrams: 01/13/22 20:56 01/13/22 20:56 Labs: Laboratory Results - last 24 hr 01/13/22 20:56: WBC 8.3, RBC 4.22, Hgb 13.5, Hct 39.0, MCV 92.4, MCH 32.0, MCHC 34.6, RDW Std Deviation 40.1, RDW Coeff of Jose 11.9, Plt Count 283, MPV 9.5 01/13/22 20:56: Creatinine 0.71, Estim Creat Clear Calc 94.13, Est GFR (MDRD) Af Amer 126, Est GFR (MDRD) Non-Af 104, Uric Acid 4.8, AST 12 L, ALT 27, Lactate Dehydrogenase 152 ROS Eyes Eyes: Denies blurry vision, change in vision or spots in vision ENT HEENT: Denies dizziness or headache(s) Cardiovascular Cardiovascular: Denies abdominal pain, chest pain or dyspnea Respiratory/Chest Respiratory/Chest: Denies cough, dyspnea, shortness of breath at rest or shortness of breath with exertion Gastrointestinal Gastrointestinal: Denies abdominal pain, diarrhea or vomiting Genitourinary Genitourinary: Denies change in urinary stream, difficulty urinating or dysuria Musculoskeletal Musculoskeletal: Reports none Integumentary Integumentary: Denies rash Neurologic Neurologic: Reports headache(s); Denies memory loss Assessment & Plan (1) Severe pre-eclampsia, complicating the puerperium: COMMENT: POD#13 (2) Care and examination of lactating mother: PLAN: Plan Continue Magnesium Sulfate IV at 2 gm/hour- 24 hours tonight at 2146 Continue Labetalol 100 mg PO BID Magnesium checks support Pain control
[2022-01-14] MEDS: Labetalol 100 MG Tablet PO ×2 (09:05→22:21)
[2022-01-14 13:53] LABS: Magnesium 6.1 mg/dL (1.6-2.6)
--- NOTE | 2022-01-14 17:10 | PCM.PN.BLA ---
Progress Note Seen at bedside, doing well. Patient is breast-feeding currently. Patient reports feeling much better after magnesium turned down to 1 g/h. We will maintain this at this time. Last mag level was 6.1. Magnesium will come off around 2100. Continue labetalol 100 mg twice daily.
--- NOTE | 2022-01-14 19:10 | NURSING ---
RN received bedside report from Ivana Dawn RN and is assuming care of pt at this time
[2022-01-14] MEDS: Calcium Carbonate 500 MG Tablet 1000 MG PO (22:08)
--- NOTE | 2022-01-14 22:17 | NURSING ---
pt sitting up directly in bed holding at this time
[2022-01-14] MEDS: 0.9% Saline Lock 10 ML Syringe IV (22:22)
--- NOTE | 2022-01-14 22:35 | NURSING ---
cuddles tag 24 applied to at this time
[2022-01-15] VITALS (38 sets, daily range): BP systolic 117–181; BP diastolic 62–97; PULSE 67–94; RESP 16–18; TEMP 36.5–36.8; O2SAT 98–100
[2022-01-15] MEDS: Calcium Carbonate 500 MG Tablet 1000 MG PO ×2 (05:52→14:43)
--- NOTE | 2022-01-15 07:15 | NURSING ---
report given to Avel Fernandez RN who is assuming care of pt at this time
[2022-01-15] MEDS: 0.9% Saline Lock 10 ML Syringe IV (10:23)
[2022-01-15] MEDS: Labetalol 100 MG Tablet PO (10:23)
[2022-01-15] MEDS: Labetalol 200 MG Tablet PO ×2 (12:11→20:15)
--- NOTE | 2022-01-15 13:02 | PN.OBGYN_ITS ---
Subjective Subjective Doing well per patient and nursing staff. Ambulating and taking PO without difficulty. Voiding and passing flatus. Pain controlled. . Denies headache, visual changes, chest pain, shortness of breath, leg pain or increased bleeding. Continues taking Labetalol 100mg PO BID. Objective Data Objective Data Vital Signs: Vital Signs Temp Pulse Resp BP Pulse Ox O2 Del Method 97.7 F L 73 16 135/75 H 98 Room Air 01/15/22 09:05 01/15/22 12:07 01/15/22 11:51 01/15/22 12:12 01/15/22 11:51 01/15/22 11:51 Oxygen Delivery Method Room Air Weight: 187 lb 9.6 oz Body Mass Index (BMI) 34.3 Intake & Output: Intake and Output for Last 24 Hours 01/13/22 01/14/22 01/15/22 23:59 23:59 23:59 Intake Total 270 / 270 3043.84 / 3043.84 Output Total 2400 / 2400 Balance 270 / 270 643.84 / 643.84 Lab / Micro Data Result Diagrams: 01/13/22 20:56 01/13/22 20:56 Labs: Laboratory Results - last 24 hr 01/14/22 13:15: Magnesium 6.1 H* Physical Exam Const alert and oriented x3 General Appearance: cooperative Orientation / Consciousness: awake, oriented to person, oriented to place and or iented to time Exam Limitations: no limitations HEENT normocephalic Head and Scalp: normal to inspection, normocephalic and atraumatic Face and Sinus: normal facial exam Eyes General Eye: normal appearance of both eyes Neck full ROM Chest Chest: symmetrical chest wall rise Resp normal respiratory effort and normal air movement Auscultation: clear to auscultation bilaterally Cardio regular rate, regular rhythm, S1 normal heart sound, S2 normal heart sound, no murmurs, no rub, no gallops and no clicks GI normal to inspection, nondistended, normoactive bowel sounds and non-tender appearance of the vagina normal Bladder / Kidney Exam: no CVA tenderness Back/Spine normal ROM Extremity normal to inspection and full ROM Skin no rashes or lesions noted Neuro oriented x3, CN's II-XII intact bilaterally and moves all extremities Sensorium / Orientation: awake, alert and oriented to person Motor Exam: clonus absent Deep Tendon Reflexes: Rt Patellar (L4): 2+ and Lt Patellar (L4): 2+ Assessment & Plan (1) Care and examination of lactating mother: (2) Severe pre-eclampsia, complicating the puerperium: COMMENT: POD#13 PLAN: Plan 1) BP elevated severe range, Labetalol increased to 200mg PO TID 2) I&O 3) Pain controlled 4) without difficulty and baby doing well 5) Recommend D/C home tomorrow due to S/P magnesium not until 2145 this evening and recent elevated BP. 6) aware and reviewed patient blood pressures.
[2022-01-15] MEDS: NIFEdipine 10 MG Capsule PO (18:55)
[2022-01-15] MEDS: NIFEdipine 30 MG Tablet PO (19:07)
--- NOTE | 2022-01-15 22:45 | NURSING ---
Addendum entered by Cierra Sutton 01/15/22 22:48: This note was put under the wrong patients chart. Original Note: This RN is in pt rm feeding the infant because mother is on the phone. After mother gets off the phone she proceeds to ask me if tomorrow CPS were to come in and put it (referring to the baby) in foster care, would i be allowed to leave?.
[2022-01-15] MEDS: Ibuprofen 600 MG Tablet PO (23:00)
[2022-01-16] VITALS (10 sets, daily range): BP systolic 107–142; BP diastolic 57–86; PULSE 57–80; RESP 15–18; TEMP 36.1–36.8
[2022-01-16] MEDS: Ibuprofen 600 MG Tablet PO (05:20)
[2022-01-16] MEDS: Labetalol 200 MG Tablet PO ×2 (06:31→14:04)
[2022-01-16] MEDS: NIFEdipine 30 MG Tablet PO (09:58)
--- NOTE | 2022-01-16 15:43 | PCM.DC.SUM ---
Providers Date of Admission: 01/13/22 Primary Care Physician: No Primary Care Phys Reason For Visit: PP HYPERTENSION Diagnosis Discharge Diagnosis (1) Care and examination of lactating mother: Status: Acute Code(s): Z39.1 - Encounter for care and examination of lactating mother (2) Severe pre-eclampsia, complicating the puerperium: Status: Acute Code(s): O14.15 - Severe pre-eclampsia, complicating the puerperium Plan: Patient with known chronic hypertension but not on medication. Now with severe range BP's. PreE labs normal Start hypertensive protocol wiht labetalol Magnesium sulfate for 24 hours Plan of care discussed with patient & all questions answered Medications at Discharge Home Medications ascorbate nudrngd-sykzcuoa-ddi 1,000 mg oral powder effervescent pakt (Vit C(ascorb.calcium)(mv-mins)) 1 ea PO DAILY pregancy 11/07/21 docosahexaenoic acid 200 mg capsule 200 mg PO BID 11/07/21 lactobacillus combination no.4 3 billion cell capsule (Probiotic) 3,000 mmu cells PO DAILY 11/07/21 magnesium 4 tab PO DAILY 11/07/21 milk thistle 200 mg capsule 300 mg PO QHS liver 11/07/21 prenat.vits,sarai,fzj-ekrp-syjom 3 tab PO DAILY 11/07/21 vit D3-folic acid-vit B2-B6-B12 2,000 unit-800 mcg-0.32 mg tablet 2 tab PO DAILY 11/07/21 [id number]-S7-E1-R7-H8-F84-S-LK 18 mg-10 mg-45 mg-5 mg-250 mg tablet 1 tab PO DAILY 11/07/21 ibuprofen 600 mg tablet 600 mg PO Q6H PRN pain #30 tabs 01/03/22 oxycodone-acetaminophen 5 mg-325 mg tablet (Percocet) 1 tab PO Q6H PRN pain 7 days #10 tabs 01/03/22 labetalol 200 mg tablet 200 mg PO TID #0 tabs 01/16/22 nifedipine 30 mg tablet,extended release 24 hr 30 mg PO DAILY #0 tabs 01/16/22 Hospital Course Operations None Summary of Care Provided Hospital Course: Patient admitted POD#12 with severe preeclampsia. She received 24hours magnesium sulfate. Her BP was well controlled at discharge on oral medications Physical Exam Const alert, oriented x3 and no apparent distress HEENT normocephalic GI soft to palpation, non-tender and non-distended GI Narrative: fundus firm, mid & below umbilicus Incision - bandage c/d/i Extremity normal to inspection and no calf tenderness Weight / BMI Weight Weight: 187 lb 9.6 oz Body Mass Index (BMI) 34.3 ABG / Lab / Microbiology Data Result Diagrams: 01/13/22 20:56 01/13/22 20:56 D/C Instructions Discharge Diet: No restrictions Discharge Activity: May Shower May resume sexual activity in: 6 weeks Weight Bearing Status: Weight bearing as tolerated Call your doctor if your incision/area has: Continuous Slow Oozing, Sudden Increased Bleeding, Increased Pain/ Swelling, Increased Redness, Foul Smelling Discharge and Swelling at the incision site Call your doctor if you observe: Fever of 101 or Higher, Change in Color, Inability to urinate, Using more than 1 pad per hour, Shortness of breath, Fainting spells, Swelling in the ankles, Increased palpitations (irregular heartbeat) and Uncontrolled pain Suture Line Care: Avoid Pulling/Pushing and Avoid Pinching/Bending Cleanse incision/area with: Soap & Water Please Follow Up With: Mehul Salazar MD When: 3-4 days Meaningful Use Info Meaningful Use Diagnoses (Choose all that apply): None applicable Discharge Plan Admission Admit Date/Time: 01/13/22 21:20 Primary Reason for Your Visit: Elevated blood pressure Attending Provider: Mehul Salazar Primary Care Provider: Care Physician,No Primary Discharge Orders/Prescriptions Prescriptions: New nifedipine 30 mg Tablet Extended Release 24hr 30 mg PO DAILY Qty: 0 0RF labetalol 200 mg Tablet 200 mg PO TID Qty: 0 0RF Continued milk thistle 200 mg Capsule 300 mg PO QHS Rx Instructions: give with meal/snack prenat.vits,sarai,qhz-wrbj-bputz Tablet 3 tab PO DAILY magnesium Tablet 4 tab PO DAILY docosahexaenoic acid 200 mg Capsule 200 mg PO BID Vit C(ascorb.calcium)(mv-mins) 1,000 mg Powder Effervescent In Packet 1 ea PO DAILY vit B1 gy-N7-D2-Z5-[id number]-C-FA 61-32-92-5-250 mg Tablet 1 tab PO DAILY vit D3-folic yvmp-E0-D1-B12 2,000-800-0.32 unit-mcg-mg Tablet 2 tab PO DAILY Probiotic 3 billion cell Capsule 3,000 mmu cells PO DAILY Rx Instructions: administer with a meal oxycodone-acetaminophen [Percocet] 5-325 mg tablet 1 tab PO Q6H PRN (Reason: pain) 7 Days Qty: 10 0RF ibuprofen 600 mg tablet 600 mg PO Q6H PRN (Reason: pain) Qty: 30 0RF Referrals / Follow Up: Care Physician,No Primary [Primary Care Provider] - Disposition Disposition (needs filled in before D/C Order can be placed): Home, Self Care
== END 2022-01-16 16:25 | disposition home or self-care (01) | DRG 776 ==
LOC: WPOUT 01-14 10:42
PROVIDERS: Obstetrics & Gynecology; Admitting Provider Obstetrics & Gynecology; Visit Provider Obstetrics & Gynecology
DX: O14.15 Severe pre-eclampsia, complicating the puerperium (principal); Z39.1 Encounter for care and examination of lactating mother; Z3A.00 Weeks of gestation of pregnancy not specified
CPT/HCPCS: 36415; 82565; 83615; 83735; 84450; 84460; 84550; 85027; 99218; J7120; A4216; G0378

== ENCOUNTER 2023-03-18 14:12 | Emergency (ER) | payer SELFPAY ==
[2023-03-18 14:14] VITALS: BP 153/97; PULSE 83; RESP 14; TEMP 37.2; O2SAT 100; BMI 31.9
--- NOTE | 2023-03-18 15:54 | US_ITS ---
INDICATION: Right sided pelvic pain. -- Right-sided pelvic pain. History of cyst. EXAMINATION: US Transvaginal Non-OB TECHNIQUE: Transvaginal (for optimal evaluation of the adnexa) pelvic ultrasound was performed. Grayscale, spectral waveform, and color flow Doppler evaluation of the adnexa. COMPARISON: None. FINDINGS: UTERUS: Anteverted. The uterus measures 11.1 x 5.4 x 4.6 cm. There is no uterine mass. The endometrial stripe measures 14 mm in AP diameter which is within normal limits. RIGHT OVARY: Measures 5.5 x 4.1 x 3.7 cm. Non-enlarged, normal echogenicity. There is normal arterial inflow and venous outflow present in the right ovary. Contains a round hypoechoic structure measuring 3.4 x 3.4 cm with a inner echogenic nodule with posterior acoustic shadowing. LEFT OVARY: Measures 2.5 x 2.2 x 2.3 cm. Non-enlarged, normal echogenicity. There is normal arterial inflow and venous outflow present in the left ovary. FREE FLUID: None. 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 Recommend [employer] consultation. Electronically Signed: Osmany Avendaño MD at 17:28 EST ,
--- NOTE | 2023-03-18 15:56 | ED.VIS.FEGU ---
HPI HPI - Female History of Present Illness Chief Complaint: Female C/O Informant: patient Pain Pain: Positive for Pelvic Pain Timing: Continuous Quality: Positive for Cramping Current Severity: Mild Maximum Severity: Moderate Bleeding Issue: Negative for Vaginal bleeding, Passing clots or Passing tissue Associated Symptoms Associated Symptoms: Negative for Dysuria, Frequency or Urgency Test: Positive P: 1 Ab: 0 Narrative Narrative: 8-year-old female history of prior ovarian cyst. Prior kidney stone. Complaining of right lower quadrant pelvic pain. Associated nausea vomiting. Started this morning. No diarrhea. No fever. No dysuria. No vaginal bleeding or discharge. G1, P1 Ab0. Last menstrual period was around February 27. Prior similar symptoms: Yes Recent Illness/Hospitalization: No PFSH PFSH Medical History Chronic hypertension Chronic hypertension affecting Neurofibromatosis Neurofibromatosis, peripheral, NF1 Severe pre-eclampsia, complicating the puerperium Home Medications ascorbate [id number] 1,000 mg oral powder effervescent pakt (Vit C(ascorb.calcium)(mv-mins)) 1 ea PO DAILY pregancy 11/07/21 [History Last Taken 12/30/21 06:00] docosahexaenoic acid 200 mg capsule 200 mg PO BID 11/07/21 [History Last Taken 12/30/21 06:00] lactobacillus combination no.4 3 billion cell capsule (Probiotic) 3,000 mmu cells PO DAILY 11/07/21 [History Last Taken 12/30/21 06:00] magnesium 4 tab PO DAILY 11/07/21 [History Last Taken 11/07/21 11:30 1 tab] milk thistle 200 mg capsule 300 mg PO QHS liver 11/07/21 [History Last Taken 12/30/21 06:00] prenat.vits,sarai,lrz-ayte-krwtz 3 tab PO DAILY 11/07/21 [History Last Taken 12/30/21 06:00] vit D3-folic acid-vit B2-B6-B12 2,000 unit-800 mcg-0.32 mg tablet 2 tab PO DAILY 11/07/21 [History Last Taken 12/30/21 06:00] [id number] 18 mg-10 mg-45 mg-5 mg-250 mg tablet 1 tab PO DAILY 11/07/21 [History Last Taken 12/30/21 06:00] ibuprofen 600 mg tablet 600 mg PO Q6H PRN pain #30 tabs 01/03/22 [Rx Last Taken Unknown] oxycodone-acetaminophen 5 mg-325 mg tablet (Percocet) 1 tab PO Q6H PRN pain 7 days #10 tabs 01/03/22 [Rx Last Taken Unknown] labetalol 200 mg tablet 200 mg PO TID #0 tabs 01/16/22 [Rx Last Taken Unknown] nifedipine 30 mg tablet,extended release 24 hr 30 mg PO DAILY #0 tabs 01/16/22 [Rx Last Taken Unknown] Allergy/AdvReac Type Severity Reaction Status Date / Time Sulfa (Sulfonamide Allergy Rash Verified 03/18/23 14:14 Antibiotics) Surgical History History of surgery S/P section Social History Smoking Status: Never smoker ROS ROS ED ROS Narrative His recent illness. Nausea and vomiting today due to pain. Review of Systems ROS Unobtainable: Denies due to encephalopathy Constitutional Constitutional ED: Denies chills or fever(s) Eyes Eyes: Denies blurry vision ENT ENT ED: Denies ear pain Cardiovascular Cardiovascular: Denies chest pain Respiratory/Chest Respiratory/Chest: Denies cough or dyspnea Gastrointestinal Gastrointestinal: Reports abdominal pain, nausea and vomiting; Denies constipation, diarrhea or melena Genitourinary Genitourinary ED: Denies dysuria or hematuria Musculoskeletal Musculoskeletal: Denies arthralgias or myalgias Integumentary Denies abscess or Abrasions Neurologic Neurologic: Denies headache(s) Psychiatric Psychiatric: Denies anxiety Endocrine Endocrinology: Denies heat intolerance Hematologic/Lymphatic Hematologic/Lymphatic: Denies easy bleeding Allergic/Immunologic Allergic/Immunologic ED: Denies mouth swelling or tongue swelling EXAM Physical Exam Narrative Exam Narrative: Well-appearing 28-year-old female. Vital signs stable afebrile. H EENT exam unremarkable. Neck nontender. Lungs clear equal symmetrical. Heart regular rhythm rate about 80 no murmur. Abdomen soft nondistended normal bowel sounds no peritoneal signs. Tenderness in the right lateral pelvis. Medial and lower than the right lower quadrant. Not McBurney's point. No distention. No peritoneal signs. Moving all 4 extremities. Back nontender. Neurologically she is awake and alert. Const Vital Signs: 03/18/23 14:14 03/18/23 18:00 Temperature 99 F Temperature Source Temporal Pulse Rate 83 71 Respiratory Rate 14 15 Blood Pressure 153/97 H 127/68 H Blood Pressure Mean 115 87 Pulse Ox 100 97 Oxygen Delivery Method Room Air Room Air Positive well nourished and well developed; Negative for obese, cachectic, contractures or unkempt General Appearance ED: well developed and NAD; Negative for unkempt, cachectic, contractures or pallor Nutritional Appearance: Negative for cachectic or obese HEENT Reports moist mucous membranes Negative for trauma or tenderness Eyes PERRL and EOMs intact bilaterally General Eye ED: Negative for pale conjunctiva, scleral icterus or other Neck no lymphadenopathy, supple and no JVD General: Negative for other Thyroid: Negative for tender Lymph Lymphatic: Negative for other Chest Wall inspection of chest normal and palpation of chest normal Chest: Negative for other Resp normal respiratory effort and clear to auscultation bilaterally Effort and Inspection: Negative for pain with movement Auscultation: Negative for rales, rhonchi or wheezes Cardio regular rate, regular rhythm, S1 normal heart sound, no murmurs and no JVD Rate: Negative for bradycardia or tachycardic Rhythm: Negative for abnormal rhythm GI normal to inspection, nondistended, normoactive bowel sounds, soft to palpation, non-distended and no masses; Negative for non-tender Auscultation: normoactive bowel sounds Palpation: Negative for tender, guarding or rigid Back/Spine no CVA tenderness General Back: Negative for CVA tenderness Cervical Spine: Negative for cervical spine tenderness Thoracic Spine / Upper Back: Negative for thoracic spinal tenderness Lumbar Spine / Lower Back: Negative for lumbar spinal tenderness Sacrum: Negative for other Extremity normal to inspection and full ROM General Extremety ED: Negative for edema General Extremity: Negative for edema Neuro oriented x3 and CN's II-XII intact bilaterally Sensorium / Orientation: alert, oriented to person, oriented to place and oriented to time; Negative for confused, lethargic or stuporous Motor Exam: strength 5/5 throughout Psych mental status grossly normal Appearance: Negative for unkempt Attitude: No agitated Speech: No other Mood & Affect: Negative for depressed, anxious or tearful Skin no rashes or lesions noted and no wounds General Skin Exam: Negative for jaundice or pallor Rashes: No rashes noted Trauma: Negative for other MDM MDM MDM Narrative Medical decision making narrative: 28-year-old female vital signs stable afebrile. Right lower quadrant abdominal pain more consistent with a ovarian cyst and appendicitis. Ultrasound and labs pending. Morphine for pain Zofran for nausea. Repeat exam patient is doing well. The pain is all medial suprapubic region. Not McBurney's point. She well be given a dose of another dose of pain medication prior to discharge. She has appointment to follow-up with her primary care physician. She will be written for limited Percocet 10 no refill for pain along with Motrin. Return if increasing pain, fever or feeling worse. History & Record Review Discussion w/independent historian: Patient Lab Data Attestation: I reviewed the patient's lab results. Lab results narrative: CBC shows a white count of 20,000. H&H of 15 and 46. Platelets 210. Elevated white count most likely from her nausea and vomiting. At 9 BUN and creatinine 20 and 0.8. Glucose 119. test negative. UA negative except for ketones. Ultrasound shows a 3.4 cm dermoid cyst. Labs: Laboratory Results - last 24 hr 03/18/23 03/18/23 15:55 17:57 WBC 20.4 H RBC 5.13 Hgb 15.5 H Hct 46.0 MCV 89.7 MCH 30.2 MCHC 33.7 RDW Std Deviation 39.3 RDW Coeff of Jose 12.0 Plt Count 210 MPV 10.1 Immature Gran % (Auto) 0.300 Neut % (Auto) 93.4 H Lymph % (Auto) 3.4 L [place] % (Auto) 2.4 Eos % (Auto) 0.2 Baso % (Auto) 0.3 Absolute Neuts (auto) 19.0 H Absolute Lymphs (auto) 0.69 L Nucleated RBC % 0 Sodium 140 Potassium 3.8 Chloride 108 H Carbon Dioxide 23.0 Anion Gap 9 BUN 20 H Creatinine 0.88 Estim Creat Clear Calc 74.60 Est GFR (MDRD) Af Amer 98 Est GFR (MDRD) Non-Af 81 BUN/Creatinine Ratio 22.7 H Glucose 119 H Calcium 9.7 Serum , Qual NEGATIVE Urine Color Yellow Urine Clarity Clear Urine pH 6.0 Ur Specific [place] 1.020 Urine Protein 30 H Urine Glucose (UA) Normal Urine Ketones 150 A* Urine Occult Blood 10 H Urine Nitrite Negative Urine Bilirubin Negative Urine Urobilinogen Normal Ur Leukocyte Esterase Negative Urine RBC 0 SEEN Urine WBC 0 SEEN Ur Squamous Epith Cells 0 SEEN Urine Bacteria 0 SEEN Urine Mucus RARE Radiography Diagnostic Testing: Clinical Impression(s) from Imaging Studies Transvaginal US 03/18/23 15:54 IMPRESSION: Findings most consistent with 3.4 cm right ovarian dermoid. Recommend CARDIAC CATH TECHNICIAN consultation. Electronically Signed: Osmany Avendaño MD at 17:28 EST , Discharge Plan Triage Chief Complaint: Female C/O ED Provider: Joshua Mckenzie Dx/Rx/DC Orders Clinical Impression: Pelvic pain, Dermoid cyst Instructions: Abdominal Pain Prescriptions: No Action milk thistle 200 mg Capsule 300 mg PO QHS Rx Instructions: give with meal/snack prenat.vits,sarai,nib-pkep-xndnn Tablet 3 tab PO DAILY magnesium Tablet 4 tab PO DAILY docosahexaenoic acid 200 mg Capsule 200 mg PO BID Vit C(ascorb.calcium)(mv-mins) 1,000 mg Powder Effervescent In Packet 1 ea PO DAILY vit B1 [id number]-FA 68-11-57-5-250 mg Tablet 1 tab PO DAILY vit D3-folic holv-F0-C8-B12 2,000-800-0.32 unit-mcg-mg Tablet 2 tab PO DAILY Probiotic 3 billion cell Capsule 3,000 mmu cells PO DAILY Rx Instructions: administer with a meal oxycodone-acetaminophen [Percocet] 5-325 mg tablet 1 tab PO Q6H PRN (Reason: pain) 7 Days Qty: 10 0RF ibuprofen 600 mg tablet 600 mg PO Q6H PRN (Reason: pain) Qty: 30 0RF nifedipine 30 mg Tablet Extended Release 24hr 30 mg PO DAILY Qty: 0 0RF labetalol 200 mg Tablet 200 mg PO TID Qty: 0 0RF Primary Care Provider: Dulce Webber NP Referrals: Jahaira Sawyer DO [Med Staff - Active Staff] - As soon as possible Dulce Webber NP, [employer] [Primary Care Provider] - Activity Restrictions/Additional Instructions: Motrin and Tylenol for pain. If you need stronger pain medication use Percocet. If using the Percocet do not use Tylenol. Follow-up with your [employer] as soon as possible. The ultrasound showed a 3.4 cm dermoid cyst on the right. If you are having increasing pain, fever or feeling worse return. Disposition Disposition: Home, Self Care
--- OUTSIDE RECORDS SUMMARY | 2023-03-18 16:01 | XMS RPT_ITS | CCD ---
Author Name Unknown Address [address] [place] [address] Organization [facility] Care Team Providers Care Pan Shaker Name Role Phone Ry Fleming MD Primary Care Provider Ry Fleming MD Primary Care Provider Skinny Childs DO Primary Care Provider Livia Morillo Unavailable Unavailable Dr. Livia Morillo Referring Unavailable aJmar Phipps Primary Care UnavailDr. Livia Morales Attending Unavailable Dr. Livia Morillo Referring Unavailable Jamar Phipps Primary Care UnavailDr. Kandy Whaley Attending Unavailable SKINNY CHILDS Primary Care Unavailable MIGUEL RM Referring Unavailable MIGUEL RM Attending Unavailable DULCE WEBBER Attending Unavailable SKINNY CHILDS Referring Unavailable SKINNY CHILDS Primary Care Unavailable DULCE WEBBER Attending Unavailable SKINNY CHILDS Primary Care Unavailable Allergies Allergy Classification Reported Allergen(s) Allergy Type Date of Onset Reaction(s) Facility (20 sources) Sulfamethoxazole; Translations: [SULFAMETHOXAZOLE ] Drug Allergy 03-20-2014 [facility] Medications Current Medications Medication Drug Class(es) Dates Sig (Normalized) Sig (Original) Acetaminophen (3 sources) Completed/Discontinued Medications Medication Drug Class(es) Dates Sig (Normalized) Sig (Original) ascorbic acid 1000 mg oral tablet (18 sources) Vitamin C take 1000 mg by mout h twice daily ascorbic acid (VITAMIN C ORAL) Take 1,000 mg by mouth twice daily. 0 Active Problems Active Problems Problem Classification Problem Date Documented Da te Episodic/Chronic Conditions associated with dizziness or vertigo (1 source) Dizzy spells; Translations: [Dizziness and giddiness] Episodic Endometriosis (1 source) Endometriosis of ovary; Translations: [Endometrioma of ovary] 03-02-2023 Chronic Hemorrhoids (2 sources) External hemorrhoids; Translations: [Residual hemorrhoidal skin tags] Episodic Hypertension complicating ; childbirth and the puerperium (20 sources) Pre-existing hypertension in obstetric context; Translations: [Unspecified pre-existing hypertension complicating , unspecified trimester] Onset: 5 Chronic Mycoses (1 source) Candidiasis of mouth; Translations: [Candidal stomatitis] Episodic Neoplasms of unspecified nature or uncertain behavior (2 sources) Neoplasm of uncertain behavior of skin Onset: 3 Episodic Nervous system congenital anomalies (20 sources) Neurofibromatosis type 1; 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, type 1] Onset: 2 Chronic Other circulatory disease (5 sources) Elevated blood-pressure reading without diagnosis of hypertension; Translations: [Elevated blood-pressure reading, without diagnosis of hypertension] Onset: 5 01-18-2015 Episodic Other circulatory disease (1 source) H/O: hypertension; Translations: [Personal history of other diseases of the circulatory system] Onset: 3 03-02-2023 Episodic Other complications of (1 source) Maternal obesity complicating , childbirth and the puerperium, antepartum; Translations: [Obesity complicating , third trimester] Chronic Other complications of (19 sources) Obesity; Translations: [Obesity complicating , unspecified trimester] Onset: 2 Chronic Other complications of (20 sources) High risk ; Translations: [Supervision of high risk , unspecified, third trimester] Onset: 2 Episodic Other gastrointestinal disorders (1 source) Smearing feces; Translations: [Fecal smearing] 03-02-2023 Episodic Other screening for suspected conditions (not mental disorders or infectious disease) (1 source) Patient encounter status; Translations: [Encounter for other specified screening] Episodic Ovarian cyst (1 source) Cyst of ovary; Translations: [Unspecified ovarian cyst, unspecified side] Episodic Residual codes; unclassified (1 source) H/O: severe pre-eclampsia; Translations: [Personal history of other complications of , childbirth and the puerperium] Onset: 03-02-2023 Episodic Past or Other Problems Problem Classification Problem Date Documented Da te Episodic/Chronic Hypertension complicating ; childbirth and the puerperium (9 sources) Severe pre-eclampsia; Translations: [Severe pre-eclampsia, complicating the puerperium] Onset: 01-20-2022 01-20-2022 Episodic Other complications of (16 sources) Late entry into care; Translations: [Supervision of with insufficient care, unspecified trimester] Onset: 11-11-2021 Episodic Results Test Name Value Interpretation Reference Range Facil ity Vital Signs Date Time Vital Sign Value Performing Clinician Facility 03-02-2023 11:07-0500 Body height 157.5 cm Miguel Rm APRN.CNM Work Phone: [facility] 03-02-2023 11:07-0500 Body weight 81.1 kg Miguel Rm APRN.CNySlvia Work Phone: [facility] 03-02-2023 11:07-0500 Diastolic blood pressure 80 mm[Hg] Miguel Rm APRN.CNSylvia Work Phone: [facility] 03-02-2023 11:07-0500 Systolic blood pressure 126 mm[Hg] Miguel Rm APRN.CNM Work Phone: [facility] 04-27-2022 12:02-0500 Body weight 80.47 kg Dulce Webber APRN.REFRIGERATION ENGINEERING TEACHER Work Phone: [facility] 04-27-2022 12:02-0500 Diastolic blood pressure 82 mm[Hg] Dulce Webber APRN.REFRIGERATION ENGINEERING TEACHER Work Phone: [facility] 04-27-2022 12:02-0500 Heart rate 107 /min Dulce Webber APRN.CNP Work Phone: [facility] 04-27-2022 12:02-0500 SaO2% (BldA) [Mass fraction] 96 % Dulce Webber APRN.REFRIGERATION ENGINEERING TEACHER Work Phone: [facility] 04-27-2022 12:02-0500 Systolic blood pressure 136 mm[Hg] Dulce Lawanda WIRER HELPER.REFRIGERATION ENGINEERING TEACHER Work Phone: [facility] 03-27-2022 08:27-0500 Body height 160 cm Dulce Lawanda WIRER HELPER.REFRIGERATION ENGINEERING TEACHER Work Phone: [facility] 03-27-2022 08:27-0500 Body weight 83.37 kg Dulce Lawanda WIRER HELPER.REFRIGERATION ENGINEERING TEACHER Work Phone: [facility] 03-27-2022 08:27-0500 Diastolic blood pressure 92 mm[Hg] Dulce Lawanda WIRER HELPER.REFRIGERATION ENGINEERING TEACHER Work Phone: [facility] 03-27-2022 08:27-0500 Heart rate 84 /min Dulce Lawanda WIRER HELPER.REFRIGERATION ENGINEERING TEACHER Work Phone: [facility] 03-27-2022 08:27-0500 Respiratory rate 16 /min Dulce Lawanda WIRER HELPER.REFRIGERATION ENGINEERING TEACHER Work Phone: [facility] 03-27-2022 08:27-0500 SaO2% (BldA) [Mass fraction] 97 % Dulce Lawanda WIRER HELPER.REFRIGERATION ENGINEERING TEACHER Work Phone: [facility] 03-27-2022 08:27-0500 Systolic blood pressure 138 mm[Hg] Dulce Lawanda WIRER HELPER.REFRIGERATION ENGINEERING TEACHER Work Phone: [facility] 12-30-2021 11:29-0400 Body weight 97.89 kg Kathleen Goldberg MD Work Phone: [facility] 12-30-2021 11:29-0400 Diastolic blood pressure 96 mm[Hg] Kathleen Goldberg MD Work Phone: [facility] 12-30-2021 11:29-0400 Systolic blood pressure 180 mm[Hg] Kathleen Goldberg MD Work Phone: [facility] 11-07-2021 13:21-0400 Body height 160 cm Miguel Rm WIRER HELPER.CNM Work Phone: [facility] 11-07-2021 13:21-0400 Body weight 94.8 kg Miguel Rm APRN.CNM Work Phone: [facility] 11-07-2021 13:21-0400 Diastolic blood pressure 98 mm[Hg] Miguel Rm APRN.CNM Work Phone: [facility] 11-07-2021 13:21-0400 Systolic blood pressure 159 mm[Hg] Miguel Rm APRN.CNM Work Phone: [facility] 1994 00:00-0500 >na< Livia Morillo Dept. of Dermato logy Encounters Encounter Date Encounter Type Care Provider Facility Start: 03-02-2023 End: 03-02-2023 ambulatory SKINNY CHILDS Facility:[facility] Start: 03-02-2023 End: 03-02-2023 Patient encounter procedure Migeul Rm APRN.CNM Work Phone: OB/Gynecology Procedures Date Procedure Procedure Detail Performing Clinician Start: 04-23-2022 No Charge Livia staples Start: 11-07-2021 Us preg uterus after 1st trimest 03/22 gestation Miguel Rm APRN.CNM Work Phone: Start: 11-07-2021 Culture bacterial quanttative colony count urine Miguel Rm APRN.CNM Work Phone: Start: 11-07-2021 Antibody screen Miguel Rm APRN.CNM Work Phone: Start: 11-07-2021 CBC panel - Blood by Automated count [facility] Start: 11-07-2021 HEP B SURF AG SCRN [facility] Start: 11-07-2021 HEP C AB IA W/CONF SCRN [facility] Start: 11-07-2021 HIV 1 2 COMBO(AG/AB) ,WITH REFLEX TO DIFFERENTIATION [facility] Provider Start: 11-07-2021 RUBELLA IGG AB [facility] Prov ider Start: 11-07-2021 SYPHILIS TOTAL W/REFLEX [facility] Start: 11-07-2021 TYPE + SCREEN (EXTERNAL LAB) [facility] Provider Start: 10-25-2018 Follow-up visit Start: 10-10-2018 Follow-up visit Start: 11-05-2016 Adult depression scr eening assessment iMguel Rm APRN.CNM Work Phone: Plan of Treatment Date Care Activity Detail Author Start: 02-10-2025 PAP TESTING PAP TESTING [facility] Start: 02-10-2025 Screening for malign ant neoplasm of cervix Pap Testing [facility] Start: 11-20-2022 [facility]: [facility]-31-[facility]22 Urine microalbumin profile [facility] Start: 03-22-2022 DEPRESSION ASSESSMENT DEPRESSION ASS ESSMENT [facility] Start: 11-20-2021 Influenza vaccination INFLUENZA (#1) [facility] Start: 11-07-2021 End: 01-07-2022 CBC W Auto Differential panel - Blood CBC + DIFF Lab Routine Late care affecting , antepartum HTN in , chronic Expected: 11/07/2021, Expires: 01/07/2022 [facility] Work Phone: Immunizations Immunization Date Immunization Notes Care Provider Hailey sales 01-05-2018 measles, mumps and rubella virus vaccine Miguel Rm APRN.CNM Work Phone: [facility] 04-21-2017 influenza virus vacc ine, unspecified formulation Miguel Rm APRN.CNM Work Phone: [facility] 03-31-2012 diphtheria, tetanus toxoids and acellular pertussis vaccine Miguel Rm APRN.CNM Work Phone: [facility] 03-31-2012 diphtheria, tetanus toxoids and acellular pertussis vaccine, unspecified formulation Dulce Webber APRN.CNP Work Phone: [facility] 03-31-2012 hepatitis A vaccine, unspecified formulation Miguel Rm APRN.CNM Work Phone: [facility] 03-31-2012 poliovirus vaccine, inactivated Miguel Rm APRN.CNM Work Phone: [facility] 09-12-2009 meningococcal polysaccharide (groups A, C, Y and W-135) diphtheria toxoid conjugate vaccine (MCV4P) Dulce Lawanda WIRER HELPER.REFRIGERATION ENGINEERING TEACHER Work Phone: [facility] 09-10-2009 tetanus toxoid, redu efren diphtheria toxoid, and acellular pertussis vaccine, adsorbed Dulce Lawanda WIRER HELPER.REFRIGERATION ENGINEERING TEACHER Work Phone: [facility] 10-11-2007 meningococcal polysaccharide (groups A, C, Y and W-135) diphtheria toxoid conjugate vaccine (MCV4P) Dulce Lawanda WIRER HELPER.REFRIGERATION ENGINEERING TEACHER Work Phone: [facility] 10-11-2007 Meningococcal, MCV4, unspecified conjugate formulation(groups A, C, Y and W-135) Miguel Rm WIRER HELPER.CNM Work Phone: [facility] 10-11-2007 tetanus toxoid, redu efren diphtheria toxoid, and acellular pertussis vaccine, adsorbed Miguel Rm WIRER HELPER.CNM Work Phone: [facility] 09-06-2006 hepatitis A vaccine, unspecified formulation Miguel Rm WIRER HELPER.CNM Work Phone: [facility] 09-06-2006 varicella virus vaccine Joan ica Rm WIRER HELPER.CNM Work Phone: [facility] 09-02-2005 hepatitis A vaccine, unspecified formulation Miguel Rm WIRER HELPER.CNM Work Phone: [facility] 09-02-2005 tetanus toxoid, redu efren diphtheria toxoid, and acellular pertussis vaccine, adsorbed Miguel Rm WIRER HELPER.CNM Work Phone: [facility] 09-03-1999 diphtheria, tetanus toxoids and acellular pertussis vaccine Miguel Rm WIRER HELPER.CNM Work Phone: [facility] 09-03-1999 diphtheria, tetanus toxoids and acellular pertussis vaccine, unspecified formulation Dulce Lawanda WIRER HELPER.REFRIGERATION ENGINEERING TEACHER Work Phone: [facility] 05-22-1999 diphtheria, tetanus toxoids and acellular pertussis vaccine Miguel Rm WIRER HELPER.CNM Work Phone: [facility] 05-22-1999 diphtheria, tetanus toxoids and acellular pertussis vaccine, unspecified formulation Dulce Lawanda WIRER HELPER.REFRIGERATION ENGINEERING TEACHER Work Phone: [facility] 05-22-1999 measles, mumps and rubella virus vaccine Miguelwarren Rm WIRER HELPER.CNM Work Phone: [facility] 05-22-1999 poliovirus vaccine, inactivated Miguel Rm WIRER HELPER.CNM Work Phone: [facility] 03-31-1996 measles, mumps and rubella virus vaccine Miguel Rm WIRER HELPER.CNM Work Phone: [facility] 03-31-1996 varicella virus vaccine Joan ica Jag WIRER HELPER.CNM Work Phone: [facility] 03-26-1995 measles, mumps and rubella virus vaccine Miguel Rm WIRER HELPER.CNM Work Phone: [facility] 01-08-1995 hepatitis B vaccine, pediatric or pediatric/adolescent dosage Miguel Rm WIRER HELPER.CNM Work Phone: [facility] 1994 diphtheria, tetanus toxoids and acellular pertussis vaccine Miguel Jag WIRER HELPER.CNM Work Phone: [facility] 1994 diphtheria, tetanus toxoids and acellular pertussis vaccine, unspecified formulation Dulce Webber WIRER HELPER.REFRIGERATION ENGINEERING TEACHER Work Phone: [facility] 1994 haemophilus influenz ae type b vaccine, HbOC conjugate Miguel Jag WIRER HELPER.CNM Work Phone: [facility] 1994 diphtheria, tetanus toxoids and acellular pertussis vaccine Miguel Rm WIRER HELPER.CNM Work Phone: [facility] 1994 diphtheria, tetanus toxoids and acellular pertussis vaccine, unspecified formulation Dulce Webber WIRER HELPER.REFRIGERATION ENGINEERING TEACHER Work Phone: [facility] 1994 haemophilus influenz ae type b vaccine, HbOC conjugate Miguel Rm WIRER HELPER.CNM Work Phone: [facility] 1994 poliovirus vaccine, inactivated Miguel Rm WIRER HELPER.CNM Work Phone: [facility] 1994 diphtheria, tetanus toxoids and acellular pertussis vaccine Miguel Rm WIRER HELPER.CNM Work Phone: [facility] 1994 diphtheria, tetanus toxoids and acellular pertussis vaccine, unspecified formulation Dulce Lawanda WIRER HELPER.REFRIGERATION ENGINEERING TEACHER Work Phone: [facility] 1994 haemophilus influenz ae type b vaccine, HbOC conjugate Miguel Rm WIRER HELPER.CNM Work Phone: [facility] 1994 hepatitis B vaccine, pediatric or pediatric/adolescent dosage Miguel Rm WIRER HELPER.CNM Work Phone: [facility] 1994 poliovirus vaccine, inactivated Miguel Rm WIRER HELPER.CNM Work Phone: [facility] 1994 hepatitis B vaccine, pediatric or pediatric/adolescent dosage Miguel Rm WIRER HELPER.CNM Work Phone: [facility] 1994 pneumococcal conjuga te vaccine, 7 valent Livia Morillo Dept. of Dermatology Payers Date Payer Category Payer Unknown [id number] 2018 Unknown [id number] 1994 Unknown [id number] 1994 Unknown [id number] Social History Date Type Detail Facility Start: 01-18-2015 End: 01-20-2022 Tobacco smoking status NHIS Never smoked tobacco [facility] Start: 01-18-2015 End: 01-20-2022 Tobacco use and exposure Smokeless tobacco non-user [facility] Start: 03-08-2020 End: 03-02-2023 Alcohol intake Current drinker of alcohol (finding) [facility] Start: 08-09-2015 History SDOH Alcohol Comment rare [facility] Start: 1995 Sex Assigned At Not on file [facility] Start: 10-27-2021 End: 01-20-2022 Exposure to SARS-CoV-2 (event) Not sure [facility] Start: 04-22-2021 [facility] Start: 04-23-2022 Dept. of D ermatology Start: 1995 Sex Assigned At Female [facility] Start: 03-02-2023 History of Social function [facility] Start: 03-02-2023 Tobacco use panel [facility] National Score (1-100), lower number is lower risk 71 [facility] Start: 03-31-2020 Gender identity Identifies as female gender (finding) [facility] Goals Date Patient Goal Desired Activity /State Clinical Notes 04-02-2020 to 03-02-2023 Miguel Rm APRN.CNM - 03/02/2023 11:02 AM Sandra Webber APRN.CNP - 04/27/2022 12:19 PM ESTTelephone Encounter - Edelmira Randy DUPONT - 04/08/2022 2:44 PM ESTPatient Instructions Note Date & Type Note Facility 03-02-2023 Note HNO ID: [id number] Author: Miguel Rm APRN.CNM Service: ? Author Type: Regional Maintenance Manager Type: Progress Notes Filed: 03/09/2023 12:22 PM Note Text: Keith is a 27 year old who presents for an annual gynecologic exam. Seeing health aide, has improved health, 40lb weight loss. Having rectal incontinence over last year, notices more after eating and upset stomach. Menses: cycles every 26-28 days and 5-6 days of flow. Menses have been regular and doing well. Contraception: condoms HPV vaccine: No Last Pap: 02/17/2022 normal HPV: N/A History of abnormal pap: No Last mammogram: never Sexually active: Yes Time with current partner: 2 years end of Peggy, together 3 years. 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 History LMP: 02/05/2023 (Exact Date), Unknown Age at Menarche: Age at First : Age at Menopause: Sheet Metal Duct Installer Helper History Comments: Sexual Activity: Yes; Male Contraception: No contraception data on record PAST MEDICAL HISTORY Diagnosis Date Essential hypertension Nephrolithiasis Neurofibromatosis, peripheral, NF1 (HCC) at age 12 PAST SURGICAL HISTORY Procedure Laterality Date DELIVERY ONLY 01/01/2022 LTCS PAST SURGICAL HISTORY OF Right 03/22/2010 R foot screws for posture FAMILY HISTORY Problem Relation Age of Onset Psoriasis Mother other (fibromyalgia) Mother other (migraines) Mother other (htn) Mother Hypertension Mother GI Father Crohns Hypertension Father SOCIAL HISTORY Social History Tobacco Use Smoking status: Never Smokeless tobacco: Never Vaping Use Vaping Use: Never used Substance Use Topics Alcohol use: Yes Comment: rare Drug use: No REVIEW OF SYSTEMS Abdomen: No abdominal pain, nausea, vomiting, diarrhea, or constipation. No bloating, early satiety, indigestion, or increased flatulence. Bladder: No dysuria, gross hematuria, urinary frequency, urinary urgency, or incontinence. Breast: No breast lumps, nipple d/c, overlying skin changes, redness or skin retraction. Allergies and current medication updated:Yes EXAM: BP 126/80 Ht 5' 2 (1.58m) Wt 178 lb 12.8 oz (81.1kg) LMP 02/05/2023 BMI 32.69 kg/(m2). GENERAL: pleasant, female in no apparent distress HEENT: Normocephalic, atraumatic, mucus membranes moist, and no lesions NECK: Supple, full range of motion, no adenopathy, and thyroid normal DERMATOLOGY: Normal, without lesions, non-icteric, and non-hirsute BREAST: soft, non-tender, symmetric, no dominant mass, normal nipple-areolar complex, no lymphadenopathy, and no nipple discharge CHEST: Clear to auscultation, Normal inspiratory effort, Regular rate and rhythm, and No murmurs, clicks, rubs or gallops ABDOMEN: soft, non-tender, and no masses PELVIC: external genitalia normal, normal Bartholin's glands, urethra, [place]'s glands, no vulvar lesions, no cervical lesions, good vaginal support, physiologic discharge present, normal appearing perineal body and perianal region BIMANUAL: uterus normal size, shape and consistency, no adnexal masses, and non-tender RECTOVAGINAL: Hemorrhoids irritated, erythema, bleeding, peduculated NEURO: alert and oriented x3,exam grossly non-focal EXTREMITIES: normal ASSESSMENT/PLAN: 1. Encounter for gynecological examination (general) (routine) with abnormal findings - ICD9: V72.31, ICD10: Z01.411 (primary diagnosis) - Completed pelvic and breast exam - Encouraged monthly BSE - Follow up for annual exam in one year. 2. 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 3. Hemorrhoids, unspecified hemorrhoid type - ICD9: 455.6, ICD10: K64.9 - CONSULT TO GASTROENTEROLOGY 4. Fecal smearing - ICD9: 787.62, ICD10: R15.1 - CONSULT TO GASTROENTEROLOGY - If no concerns with GI, can refer to pelvic floor PT 1) Health maintenance: Pap/HPV up to date. Mammogram starting age 40. Nutrition, exercise and routine health maintenance exams reviewed. Calcium/Vitamin D supplementation information provided. Lipids/glucose: followed by PCP Vitamin D: followed by PCP 2) Contraception: condoms. Contraceptive options reviewed and information provided. 3) STD screening: Declined STD check. 4) Follow up one year or sooner as needed Miguel Rm APRN.[facility] 03-02-2023 History of Presen t illness Narrative Keith is a 27 year old who presents for an annual gynecologic exam. Seeing health aide, has improved health, 40lb weight loss. Having rectal incontinence over last year, notices more after eating and upset stomach. Menses: cycles every 26-28 days and 5-6 days of flow. Menses have been regular and doing well. Contraception: condoms HPV vaccine: No Last Pap: 02/17/2022 normal HPV: N/A History of abnormal pap: No Last mammogram: never Sexually active: Yes Time with current partner: 2 years end of March, together 3 years. 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 History LMP: 02/05/2023 (Exact Date), Unknown Age at Menarche: Age at First : Age at Menopause: Sheet Metal Duct Installer Helper History Comments: Sexual Activity: Yes; Male Contraception: No contraception data on record PAST MEDICAL HISTORY Diagnosis Date Essential hypertension Nephrolithiasis Neurofibromatosis, peripheral, NF1 (HCC) at age 12 PAST SURGICAL HISTORY Procedure Laterality Date DELIVERY ONLY 01/01/2022 LTCS PAST SURGICAL HISTORY OF Right 03/22/2010 R foot screws for posture FAMILY HISTORY Problem Relation Age of Onset Psoriasis Mother other (fibromyalgia) Mother other (migraines) Mother other (htn) Mother Hypertension Mother GI Father Crohns Hypertension Father SOCIAL HISTORY Social History Tobacco Use Smoking status: Never Smokeless tobacco: Never Vaping Use Vaping Use: Never used Substance Use Topics Alcohol use: Yes Comment: rare Drug use: No REVIEW OF SYSTEMS Abdomen: No abdominal pain, nausea, vomiting, diarrhea, or constipation. No bloating, early satiety, indigestion, or increased flatulence. Bladder: No dysuria, gross hematuria, urinary frequency, urinary urgency, or incontinence. Breast: No breast lumps, nipple d/c, overlying skin changes, redness or skin retraction. Allergies and current medication updated:Yes EXAM: BP 126/80 Ht 5' 2 (1.58m) Wt 178 lb 12.8 oz (81.1kg) LMP 02/05/2023 BMI 32.69 kg/(m^2). GENERAL: pleasant, female in no apparent distress HEENT: Normocephalic, atraumatic, mucus membranes moist, and no lesions NECK: Supple, full range of motion, no adenopathy, and thyroid normal DERMATOLOGY: Normal, without lesions, non-icteric, and non-hirsute BREAST: soft, non-tender, symmetric, no dominant mass, normal nipple-areolar complex, no lymphadenopathy, and no nipple discharge CHEST: Clear to auscultation, Normal inspiratory effort, Regular rate and rhythm, and No murmurs, clicks, rubs or gallops ABDOMEN: soft, non-tender, and no masses PELVIC: external genitalia normal, normal Bartholin's glands, urethra, [place]'s glands, no vulvar lesions, no cervical lesions, good vaginal support, physiologic discharge present, normal appearing perineal body and perianal region BIMANUAL: uterus normal size, shape and consistency, no adnexal masses, and non-tender RECTOVAGINAL: Hemorrhoids irritated, erythema, bleeding, peduculated NEURO: alert and oriented x3,exam grossly non-focal EXTREMITIES: normal ASSESSMENT/PLAN: 1. Encounter for gynecological examination (general) (routine) with abnormal findings - ICD9: V72.31, ICD10: Z01.411 (primary diagnosis) - Completed pelvic and breast exam - Encouraged monthly BSE - Follow up for annual exam in one year. 2. 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 3. Hemorrhoids, unspecified hemorrhoid type - ICD9: 455.6, ICD10: K64.9 - CONSULT TO GASTROENTEROLOGY 4. Fecal smearing - ICD9: 787.62, ICD10: R15.1 - CONSULT TO GASTROENTEROLOGY - If no concerns with GI, can refer to pelvic floor PT 1) Health maintenance: Pap/HPV up to date. Mammogram starting age 40. Nutrition, exercise and routine health maintenance exams reviewed. Calcium/Vitamin D supplementation information provided. Lipids/glucose: followed by PCP Vitamin D: followed by PCP 2) Contraception: condoms. Contraceptive options reviewed and information provided. 3) STD screening: Declined STD check. 4) Follow up one year or sooner as needed Miguel Rm APRN.CNM documented in this encounter [facility] 04-27-2022 Note HNO ID: [id number] Author: Dulce Webber APRN.CNP Service: ? Author Type: Nurse Practitioner Type: Progress Notes Filed: 04/27/2022 12:27 PM Note Text: Chief Complaint Patient presents with: BP Check HPI Keith I Husbands is a 27 year old female who presents here today for Above Complaints. Today: Hasn't been taking Labetalol for about 2-3 weeks. BP has been running 120's/80's. Feeling good. No swelling. Feeling more and more like herself every day. About 3 nights per week will have some dizziness. Does feel like room spinning dizziness. Is and feels like she likely doesn't drink enough water. Past medical history, appointments, medications, allergies reviewed. Previous Medical History PAST MEDICAL HISTORY Diagnosis Date Essential hypertension Nephrolithiasis Neurofibromatosis, peripheral, NF1 (HCC) at age 12 Previous Surgical History PAST SURGICAL HISTORY Procedure Laterality Date DELIVERY ONLY 01/01/2022 LTCS PAST SURGICAL HISTORY OF Right 03/22/2010 R foot screws for posture Family History FAMILY HISTORY Problem Relation Age of Onset Psoriasis Mother other (fibromyalgia) Mother other (migraines) Mother other (htn) Mother Hypertension Mother GI Father Crohns Hypertension Father Patient Allergies ALLERGIES Allergen Reactions Bactrim [Sulfametho* Rash as a baby Current Medications Current Outpatient Medications on File Prior to Visit Medication Sig betamethasone 0.1% mupirocin 2% nystatin nipple ointment 1:1:1 (CPD) Apply to affected area as needed. Apply sparingly after each feeding. Do not wash or wipe off. NIFEdipine ER (PROCARDIA XL) 30 mg 24 hr tablet Take 1 tablet by mouth once daily. PNV/iron/folic acid ( IFLTUGG-DIDE-UQ ORAL) Take 1 tablet by mouth once daily. cholecalciferol, vitamin D3, (VITAMIN D3 ORAL) Take by mouth once daily. MILK THISTLE ORAL Take by mouth. fish oil dvzelzutnnf-OKX-HVL (ONE OMEGA) [id number] mg capsule Take 1 capsule by mouth once daily. ascorbic acid (VITAMIN C ORAL) Take 1,000 mg by mouth twice daily. L.acid/B.animalis,bifidum/FOS (PROBIOTIC COMPLEX ORAL) Take by mouth. Magnesium 200 mg tab Take by mouth four times daily. Pure [place] Brand labetalol (TRANDATE) 100 mg tablet Take 1 tablet by mouth twice daily. (Patient not taking: Reported on 04/27/2022) No current facility-administered medications on file prior to visit. Social History Social History Tobacco Use Smoking status: Never Smokeless tobacco: Never Vaping Use Vaping Use: Never used Substance Use Topics Alcohol use: Yes Comment: rare Drug use: No Review of Symptoms REVIEW OF SYSTEMS See HPI, otherwise negative EXAM: BP 136/82 (BP Site: Left Arm, BP Position: Sitting, BP Cuff Size: Regular Adult) Pulse 107 Wt 80.5 kg (177 lb 6.4 oz) LMP 04/04/2021 SpO2 96% BMI 31.43 kg/m? General Appearance: Well appearing, alert, in no acute distress, well-hydrated, well nourished.. Lungs: Lungs clear to auscultation. No wheezing, rhonchi, rales.. Heart: RRR without murmur, gallop, or rubs. No ectopy. Extremities: No deformities, edema, skin discoloration, clubbing or cyanosis. Good capillary refill. . Health Maintenance List COVID-19 VACCINE(1) Never done INFLUENZA(1) due on 11/20/2021 DEPRESSION ASSESSMENT Never done DTAP,TDAP,TD(9 - Td or Tdap) due on 03/31/2022 PAP TESTING due on 02/10/2025 HEPATITIS B Completed HEPATITIS C SCREENING Completed HIV SCREENING Completed Data reviewed Previous records, office notes ASSESSMENT/PLAN: 1. hypertension - ICD9: 642.94, ICD10: O16.5 (primary diagnosis) Resolution. Ok to stay off labetalol. Will continue to monitor, with goal BP less than 130/80. 2. Dizzy spells - ICD9: 780.4, ICD10: R42 Suspect possible BPPV. Will continue to monitor. 3. External hemorrhoid - ICD9: 455.3, ICD10: K64.4 - HYDROCORTISONE ACETATE 25 MG RECTAL SUPPOSITORY Dulce Webber APRN.[facility] 04-27-2022 History of Presen t illness Narrative Chief Complaint Patient presents with: BP Check HPI Keith De La Paz Husbands is a 27 year old female who presents here today for Above Complaints. Today: Hasn't been taking Labetalol for about 2-3 weeks. BP has been running 120's/80's. Feeling good. No swelling. Feeling more and more like herself every day. About 3 nights per week will have some dizziness. Does feel like room spinning dizziness. Is and feels like she likely doesn't drink enough water. Past medical history, appointments, medications, allergies reviewed. Previous Medical History PAST MEDICAL HISTORY Diagnosis Date Essential hypertension Nephrolithiasis Neurofibromatosis, peripheral, NF1 (HCC) at age 12 Previous Surgical History PAST SURGICAL HISTORY Procedure Laterality Date DELIVERY ONLY 01/01/2022 LTCS PAST SURGICAL HISTORY OF Right 03/22/2010 R foot screws for posture Family History FAMILY HISTORY Problem Relation Age of Onset Psoriasis Mother other (fibromyalgia) Mother other (migraines) Mother other (htn) Mother Hypertension Mother GI Father Crohns Hypertension Father Patient Allergies ALLERGIES Allergen Reactions Bactrim [Sulfametho* Rash as a baby Current Medications Current Outpatient Medications on File Prior to Visit Medication Sig betamethasone 0.1% mupirocin 2% nystatin nipple ointment 1:1:1 (CPD) Apply to affected area as needed. Apply sparingly after each feeding. Do not wash or wipe off. NIFEdipine ER (PROCARDIA XL) 30 mg 24 hr tablet Take 1 tablet by mouth once daily. PNV/iron/folic acid ( FXDEDKF-PDGW-PM ORAL) Take 1 tablet by mouth once daily. cholecalciferol, vitamin D3, (VITAMIN D3 ORAL) Take by mouth once daily. MILK THISTLE ORAL Take by mouth. fish oil iycnxajxcfk-VFG-EGY (ONE OMEGA) [id number] mg capsule Take 1 capsule by mouth once daily. ascorbic acid (VITAMIN C ORAL) Take 1,000 mg by mouth twice daily. L.acid/B.animalis,bifidum/FOS (PROBIOTIC COMPLEX ORAL) Take by mouth. Magnesium 200 mg tab Take by mouth four times daily. Pure [place] Brand labetalol (TRANDATE) 100 mg tablet Take 1 tablet by mouth twice daily. (Patient not taking: Reported on 04/27/2022) No current facility-administered medications on file prior to visit. Social History Social History Tobacco Use Smoking status: Never Smokeless tobacco: Never Vaping Use Vaping Use: Never used Substance Use Topics Alcohol use: Yes Comment: rare Drug use: No Review of Symptoms REVIEW OF SYSTEMS See HPI, otherwise negative EXAM: BP 136/82 (BP Site: Left Arm, BP Position: Sitting, BP Cuff Size: Regular Adult) Pulse 107 Wt 80.5 kg (177 lb 6.4 oz) LMP 04/04/2021 SpO2 96% BMI 31.43 kg/m General Appearance: Well appearing, alert, in no acute distress, well-hydrated, well nourished.. Lungs: Lungs clear to auscultation. No wheezing, rhonchi, rales.. Heart: RRR without murmur, gallop, or rubs. No ectopy. Extremities: No deformities, edema, skin discoloration, clubbing or cyanosis. Good capillary refill. . Health Maintenance List COVID-19 VACCINE(1) Never done INFLUENZA(1) due on 11/20/2021 DEPRESSION ASSESSMENT Never done DTAP,TDAP,TD(9 - Td or Tdap) due on 03/31/2022 PAP TESTING due on 02/10/2025 HEPATITIS B Completed HEPATITIS C SCREENING Completed HIV SCREENING Completed Data reviewed Previous records, office notes ASSESSMENT/PLAN: 1. hypertension - ICD9: 642.94, ICD10: O16.5 (primary diagnosis) Resolution. Ok to stay off labetalol. Will continue to monitor, with goal BP less than 130/80. 2. Dizzy spells - ICD9: 780.4, ICD10: R42 Suspect possible BPPV. Will continue to monitor. 3. External hemorrhoid - ICD9: 455.3, ICD10: K64.4 - HYDROCORTISONE ACETATE 25 MG RECTAL SUPPOSITORY Dulce Webber APRN.REFRIGERATION ENGINEERING TEACHER documented in this encounter [facility] 04-08-2022 Miscellaneous Notes Patient returned call and went over notes below from Michelle Webber ENROLLMENT ADVISOR with understanding. Message left to return call Let's have her hold the labetalol for the next week and have her monitor her BP and HR. Then let me know those results in the next week and we can make a decision at that point if she can just stay off the labetalol or if we need to start her on a low dose of another medication. Dulce Webber APRN.CNP I haven't ever seen this patient, will send to [facility] to review tomorrow when she returns to office since I am not completely sure of plan for her Skinny Childs DO MyChart message from Pt: The labetalol I am taking is making me feel really nauseous lately. My BP has been pretty good. I take it before I take the Labetalol, and on average it s been 124/74. Every now and then it ll be around 128/81. I have not gone over 130s in two weeks. My heart rate has also been in the 60s, which is low for me. I m not sure if that could be a side effect of the medication. Let me know what I should do moving forward. I always feel nauseated and dizzy after I take it and it lasts awhile. Advise. Licha Phoenix documented in this encounter [facility] 03-27-2022 Miscellaneous Notes Noted, thank you. Dulce Webber APRN.CNP Pharmacist notified and will get rx ready for patient corn picker. Pt informed of info. Rosanne Shahid Ma Yes fine to use this compounded rx. Dulce Webber APRN.CNP Cruz from [facility] calling with question on compounding rx for nipple ointment. They use a different combination for the [facility] consisting of Betamethasone 0.025% and Mupirocin 1% Miconazole 2% instead of the nystatin. Asking if ENROLLMENT ADVISOR wanted that rx? Please advise documented in this encounter [facility] 03-27-2022 Note HNO ID: [id number] Author: Dulce Webber APRN.REFRIGERATION ENGINEERING TEACHER Service: ? Author Type: Nurse Practitioner Type: Progress Notes Filed: 03/27/2022 4:53 PM Note Text: Chief Complaint Patient presents with: Establish Care: Hypertension HPI Keith D eLa Paz Husbands is a 27 year old female who presents here today for Above Complaints.. Today: Is about 2.5 months . Is , baby and mother both have some thrush-has been for a week. Has had some elevated BP since December and taking Procardia since then. Her heart rate has been in the 60's and she doesn't feel well with it-felt lousy, headache. Following her about a week had BP increased to 160's. Past medical history, appointments, medications, allergies reviewed. Previous Medical History PAST MEDICAL HISTORY Diagnosis Date Essential hypertension Nephrolithiasis Neurofibromatosis, peripheral, NF1 (HCC) at age 12 Previous Surgical History PAST SURGICAL HISTORY Procedure Laterality Date DELIVERY ONLY 01/01/2022 LTCS PAST SURGICAL HISTORY OF Right 03/22/2010 R foot screws for posture Family History FAMILY HISTORY Problem Relation Age of Onset Psoriasis Mother other (fibromyalgia) Mother other (migraines) Mother other (htn) Mother Hypertension Mother GI Father Crohns Hypertension Father Patient Allergies ALLERGIES Allergen Reactions Bactrim [Sulfametho* Rash as a baby Current Medications Current Outpatient Medications on File Prior to Visit Medication Sig NIFEdipine ER (PROCARDIA XL) 30 mg 24 hr tablet Take 1 tablet by mouth once daily. PNV/iron/folic acid ( ZMJWYNN-NWTL-FO ORAL) Take 1 tablet by mouth once daily. cholecalciferol, vitamin D3, (VITAMIN D3 ORAL) Take by mouth once daily. MILK THISTLE ORAL Take by mouth. fish oil lelaxwdxato-VQT-TRC (ONE OMEGA) [id number] mg capsule Take 1 capsule by mouth once daily. ascorbic acid (VITAMIN C ORAL) Take 1,000 mg by mouth twice daily. L.acid/B.animalis,bifidum/FOS (PROBIOTIC COMPLEX ORAL) Take by mouth. Magnesium 200 mg tab Take by mouth four times daily. Pure [place] Brand labetalol (TRANDATE) 100 mg tablet Take 1 tablet by mouth three times daily. (Patient not taking: No sig reported) No current facility-administered medications on file prior to visit. Social History Social History Tobacco Use Smoking status: Never Smokeless tobacco: Never Vaping Use Vaping Use: Never used Substance Use Topics Alcohol use: Yes Comment: rare Drug use: No Review of Symptoms REVIEW OF SYSTEMS See HPI, otherwise negative EXAM: BP 138/92 (BP Site: Left Arm, BP Position: Sitting, BP Cuff Size: Regular Adult) Pulse 84 Resp 16 Ht 160 cm (5' 2.99 ) Wt 83.4 kg (183 lb 12.8 oz) LMP 04/04/2021 SpO2 97% Yes BMI 32.57 kg/m? General Appearance: Well appearing, alert, in no acute distress, well-hydrated, well nourished.. Lungs: Lungs clear to auscultation. No wheezing, rhonchi, rales.. Heart: RRR without murmur, gallop, or rubs. No ectopy. Breast: bilateral nipples reddened, mild excoriation. Health Maintenance List COVID-19 VACCINE(1) Never done INFLUENZA(1) due on 11/20/2021 DEPRESSION ASSESSMENT Never done DTAP,TDAP,TD(9 - Td or Tdap) due on 03/31/2022 PAP TESTING due on 02/10/2025 HEPATITIS B Completed HEPATITIS C SCREENING Completed HIV SCREENING Completed Data reviewed Previous records, office notes ASSESSMENT/PLAN: 1. hypertension - ICD9: 642.94, ICD10: O16.5 (primary diagnosis) Begin labetalol 100mg bid. Twice daily BP checks at home and record-will send results in 2 weeks. No need for cardiology consult. Consider echocardiogram-patient will discuss with her . - LABETALOL 100 MG TABLET 2. Thrush - ICD9: 112.0, ICD10: B37.0 Apply to both nipples after each feeding sparingly. No need to clean off prior to feeding. - BETAMETHASONE 0.1% MUPIROCIN 2% NYSTATIN [id number] U/GM 1:1:1 NIPPLE OINTMENT (CPD) Dulce Webber APRN.CNP [facility] 03-27-2022 Instructions Dulce Webber APRN.CNP - 03/27/2022 8:58 AM EST Start taking the labetalol twice daily. Monitor your BP and heart rate twice daily, send me the results through [employer] in 2 weeks. Our goal is to be 130/80 or less. We'll follow up in the office in 1 month. documented in this encounter [facility] 03-27-2022 History of Presen t illness Narrative Chief Complaint Patient presents with: Establish Care: Hypertension HPI Keith De La Paz Husbands is a 27 year old female who presents here today for Above Complaints.. Today: Is about 2.5 months . Is , baby and mother both have some thrush-has been for a week. Has had some elevated BP since December and taking Procardia since then. Her heart rate has been in the 60's and she doesn't feel well with it-felt lousy, headache. Following her about a week had BP increased to 160's. Past medical history, appointments, medications, allergies reviewed. Previous Medical History PAST MEDICAL HISTORY Diagnosis Date Essential hypertension Nephrolithiasis Neurofibromatosis, peripheral, NF1 (HCC) at age 12 Previous Surgical History PAST SURGICAL HISTORY Procedure Laterality Date DELIVERY ONLY 01/01/2022 LTCS PAST SURGICAL HISTORY OF Right 03/22/2010 R foot screws for posture Family History FAMILY HISTORY Problem Relation Age of Onset Psoriasis Mother other (fibromyalgia) Mother other (migraines) Mother other (htn) Mother Hypertension Mother GI Father Crohns Hypertension Father Patient Allergies ALLERGIES Allergen Reactions Bactrim [Sulfametho* Rash as a baby Current Medications Current Outpatient Medications on File Prior to Visit Medication Sig NIFEdipine ER (PROCARDIA XL) 30 mg 24 hr tablet Take 1 tablet by mouth once daily. PNV/iron/folic acid ( MOGXXGV-LRUJ-JR ORAL) Take 1 tablet by mouth once daily. cholecalciferol, vitamin D3, (VITAMIN D3 ORAL) Take by mouth once daily. MILK THISTLE ORAL Take by mouth. fish oil hmfjfjivjqp-PVR-CXG (ONE OMEGA) [id number] mg capsule Take 1 capsule by mouth once daily. ascorbic acid (VITAMIN C ORAL) Take 1,000 mg by mouth twice daily. L.acid/B.animalis,bifidum/FOS (PROBIOTIC COMPLEX ORAL) Take by mouth. Magnesium 200 mg tab Take by mouth four times daily. Pure [place] Brand labetalol (TRANDATE) 100 mg tablet Take 1 tablet by mouth three times daily. (Patient not taking: No sig reported) No current facility-administered medications on file prior to visit. Social History Social History Tobacco Use Smoking status: Never Smokeless tobacco: Never Vaping Use Vaping Use: Never used Substance Use Topics Alcohol use: Yes Comment: rare Drug use: No Review of Symptoms REVIEW OF SYSTEMS See HPI, otherwise negative EXAM: BP 138/92 (BP Site: Left Arm, BP Position: Sitting, BP Cuff Size: Regular Adult) Pulse 84 Resp 16 Ht 160 cm (5' 2.99 ) Wt 83.4 kg (183 lb 12.8 oz) LMP 04/04/2021 SpO2 97% Yes BMI 32.57 kg/m General Appearance: Well appearing, alert, in no acute distress, well-hydrated, well nourished.. Lungs: Lungs clear to auscultation. No wheezing, rhonchi, rales.. Heart: RRR without murmur, gallop, or rubs. No ectopy. Breast: bilateral nipples reddened, mild excoriation. Health Maintenance List COVID-19 VACCINE(1) Never done INFLUENZA(1) due on 11/20/2021 DEPRESSION ASSESSMENT Never done DTAP,TDAP,TD(9 - Td or Tdap) due on 03/31/2022 PAP TESTING due on 02/10/2025 HEPATITIS B Completed HEPATITIS C SCREENING Completed HIV SCREENING Completed Data reviewed Previous records, office notes ASSESSMENT/PLAN: 1. hypertension - ICD9: 642.94, ICD10: O16.5 (primary diagnosis) Begin labetalol 100mg bid. Twice daily BP checks at home and record-will send results in 2 weeks. No need for cardiology consult. Consider echocardiogram-patient will discuss with her . - LABETALOL 100 MG TABLET 2. Thrush - ICD9: 112.0, ICD10: B37.0 Apply to both nipples after each feeding sparingly. No need to clean off prior to feeding. - BETAMETHASONE 0.1% MUPIROCIN 2% NYSTATIN [id number] U/GM 1:1:1 NIPPLE OINTMENT (CPD) Dulce Webber APRN.REFRIGERATION ENGINEERING TEACHER documented in this encounter [facility] 03-25-2022 Miscellaneous Notes Pt able to schedule. Maine Chavis LPN Email sent to to see if anything else we can do to expedite. Yue Hardin RN Patient likely needs a different BP med. Can we expedite primary care seeing her in some way? Thanks! Mehul Salazar MD Have her stop the procardia and check her BP the next couple of days. Please have her message me her BP's on Wednesday. Thanks! Mehul Salazar MD Please review pt's b/p readings. Maine Chavis LPN Please review with tomorrow. Miguel Rm APRN.CNM Noted Thanks! Mehul Salazar MD Patient has PP appointment today with MICHAEL. Yue Hardin RN documented in this encounter [facility] 03-24-2022 Miscellaneous Notes Referral was closed inappropriately. Reopened and requested for review. Patient is scheduled for PFA phone call on 03/30/22 if unresolved prior to the date. Patient reports she will contact her EARRING MAKER to have medications refilled. Referral has been placed for self pay once cleared can proceed with scheduling establishing appointment with Dulce Webber. Estella DENNY Yes fine to establish with me. Dulce Webber APRN.CNP Patient states she has been referred to Liseth Webber as a new patient- referred by Randy Rm. Please advise. documented in this encounter [facility] documented as of this encounter (statuses as of 03/10/2023) [facility] History of Present illness Narrative* Mehul Salazar MD - 01/16/2022 3:48 PM EDT Meds sent as patient discharged from hospital Mehul Salazar MD [facility] History of Present illness Narrative* Yue Hardin RN - 01/02/2022 8:18 AM EDT Patient delivered via c-secton by Dr. Salazar on 01/01/22 at [facility]. See OB history. Yue Hardin RN [facility] History of Present illness Narrative* Kathleen Goldberg MD - 12/30/2021 12:54 PM EDT Patient presented for BPP as requested Manual BP BP 180/96 Wt 215 lb 12.8 oz (97.9 kg) LMP 04/04/2021 BMI 38.23 kg/m Patient counseled by referring provider STEPHANIE Rm and instructed to present to labor and delivery for immediate BP management Kathleen Goldberg MD December 30, 2021 12:54 PM [facility] Miscellaneous Notes* Quick Notes - Miguel Rm APRN.STEPHANIE - 12/30/2021 12:26 PM EDT MARCO ANTONIO-S: Keith De La Paz Husbands is a 26 year old female who presents at 38w0d with CALEB:01/13/2022 for a routine visit. Denies headache, visual changes, chest pain, shortness of breath, vaginal bleeding, leakage of fluid, or dysuria. Feeling well, no complaints. Has been seeing Radha Modi clay caster for care and was planning home . Blood pressure increasing in 140/90s and was transferringcare. History of CHTN and over last several weeks 130/80 with some 140 range. Slowing increasing. Denies any severe range. Denies any symptoms. Very tearful and does not want induction of labor and feels blood pressure is increased due to anxiety. O: See flow sheet Gen: Tearful Abd: Gravid, nontender A: ASSESSMENT/PLAN: 1. Chronic hypertension in 2. Neurofibromatosis, peripheral, NF1 (HCC) 3. Obesity in 4. Supervision of high risk in third trimester P: 1) Upon arrival into office today patient's blood pressure was 180/96. Reviewed with patient that [facility] does not recommend consultation or ultrasound at this time due to severe range blood pressure judeds admission for induction of labor at this time. Patient declines to speak with maternal- medicine or physician. Discussed with patient with elevated blood pressure risk for placental abruption, stroke, , maternal seizure or maternal . Discussed with patient possible preeclampsia also superimposed on chronic hypertension. Patient extremely tearful in the office and does not want to go to labor and delivery asking to speak with her and director of assessing prior to making decision. Patient came to the decision for induction of labor. Recommend to go straight to labor and delivery at this time, informed refusal and patient states she wants to go home first and then will come in. Reviewed risk to patient of continued increase in blood pressure and risks as discussed could only worsen, patient understands and informed refusal. Will evaluate patient further upon arrival to labor and delivery and decide on induction plan. Dr. Goldberg and Dr. Salazar updated on patient's status and agreeable with plan. Miguel Rm APRN.CNM [facility] Miscellaneous Notes* Telephone Encounter - Cecilia Brooks LPN - 12/29/2021 3:59 PM EDT Appointments scheduled & patient notified * Telephone Encounter - Cecilia Brooks LPN - 12/29/2021 11:24 AM EDT Discussed with chemical technician. 11:30 am tomorrow and appointment afterwards with Arlette Rm. PSS given information to schedule appointment due to referral. * Telephone Encounter - Licha Tafoya RN - 12/29/2021 9:07 AM EDT Patient 37w6d calling this morning for appointment with Miguel Rm. Patient was planning on a home but states her BP readings have been steadily increasing. Patient denies any headaches, dizziness, blurred vision or increased swelling. MARCO ANTONIO schedule currently on hold at 230 for patient as patient is self pay and referral is pending forappointment. Miguel Rm notified nursing staff that she would like patient to have growth US/BPP for chronic HTN. Ideally provider would liked patient to see MFM tomorrow for BPP. Left message to call office. Is patient willing to see MFM tomorrow for BPP. Miguel Rm can workpatient in after seeing MFM tomorrow, or if patient refuses MARCO ANTONIO can see patient. If patient wants seen today, try to add to ultrasound schedule today and MARCO ANTONIO will work in after ultrasound. Licha Tafoya RN [facility] Miscellaneous Notes* Quick Notes - Miguel Rm APRN.CNM - 11/11/2021 1:50 PM EDT MARCO ANTONIO-See progress note. Miguel Rm APRN.CNM [facility] History of Present illness Narrative* Miguel Rm APRN.CNM - 11/07/2021 1:18 PM EDT INITIAL OB ASSESSMENT OB Provider: Cecilia Brooks LPN HPI: Keith De La Paz Husbands is a 26 year old female here to establish Obstetrical Care. 04/04/21 from OB Dating Form. Cycle length: 24-28 days Complaints: None History of high blood pressure but never had medication. Had seen health aide and was taking herbal supplement prior to but stopped when she became . Dr. Rizwana Christine. Feels she has white coat hypertension. Seeing Radha Lobo for care, clay caster. Requested visit for Co-Care was unplanned but accepted. OB History T0 L0 SAB0 IAB0 Ectopic0 Multiple0 Live Births0 Prior : never History of 4th degree laceration: No Patient's Risk Screening for delivery: History of abnormal pap: No Prior treatment for cervical dysplasia: none. History of STDs: None Tobacco use: No Caffeine use: yes, limited Drug use: No Alcohol use: No Multivitamin with Folic acid: Yes Occupation: [employer] Gnosticism or heritage: No Would refuse blood transfusion if medically necessary: No No weight on file for this encounter. Patient BMI over 30? Yes Marital Status: Partner: Name: Mario Alberto Husbands Age: 26 Occupation: HR at [employer] Gender: male History of STDs: None PAST MEDICAL HISTORY Diagnosis Date Nephrolithiasis Neurofibromatosis, peripheral, NF1 (HCC) at age 12 PAST SURGICAL HISTORY Procedure Laterality Date PAST SURGICAL HISTORY OF Right 2011 R foot screws for posture Current Outpatient Medications on File Prior to Visit Medication Sig ibuprofen (ADVIL) 200 mg tablet Take 400 mg by mouth every 6 hours as needed for Pain. acetaminophen (TYLENOL EXTRA STRENGTH) 500 mg tablet Take 500 mg by mouth every 8 hours as needed for Pain. No current facility-administered medications on file prior to visit. Review of Systems: GENERAL: Negative for: Fever or Chills HEENT: Negative for: Headache, Impaired Vision, Ringing in Ears, Nosebleeds NECK: Negative for: Swelling, Pain, Stiffness RESPIRATORY: Negative for: Cough, Shortness of breath, Wheezing GASTROINTESTINAL: Negative for: Heartburn, Constipation, Diarrhea, Blood in stool, Vomiting MUSCULOSKELETAL: Negative for: Muscle or joint pain, stiffness, Joint swelling NEUROLOGIC/PSYCHIATRIC: Negative for: Weakness, Paralysis, Numbness, Tingling, Tremor, Anxiety, Depression, Memory loss SKIN: Negative for: Rash, Itching GENITOURINARY: Negative for: vaginal itching, vaginal discharge, hematuria or dysuria PHYSICAL EXAM: LMP 03/07/2020 BP 170/68 Ht 5' 3 (1.6 m) Wt 209 lb (94.8 kg) LMP 04/04/2021 BMI 37.02 kg/m 159/98 GENERAL: pleasant female in no apparent distress DERMATOLOGY: Normal, without lesions, non-icteric, and non-hirsute NECK: Supple, full range of motion, no adenopathy, and thyroid normal CHEST: Normal inspiratory effort BREAST: soft, non-tender, symmetric, no dominant mass, normal nipple-areolar complex, no lymphadenopathy, and no nipple discharge ABDOMEN: soft, non-tender, and no masses NEURO: alert and oriented x3,exam grossly non-focal PELVIS: Patient declines Clinical Pelvimetry: Deferred Limited OB ultrasound exam: not performed. Formal ultrasound after visit ASSESSMENT: 26 year old at 30 wks gestational age PLAN: 1) Patient oriented to practice. Discussed nutrition, folic acid supplementation, dietary guidelines, exercise, smoking, alcohol, caffeine, and drug use. Discussed routine OB labs including STD/HIV. Discussed aneuploidy screening options including serum screening and nuchal translucency. Patient declines all aneuploidy screening. CF carrier screening discussed and declined. 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 History of elevated BP back to 2015. States her blood pressure at home varies from low 113-140's. Discussed with patient that due to history and current blood pressure, I would treat as chronic HTN. Reviewed risks of untreated HTN, recommendations for evaluation during , risks to self and baby, along with risks of chronic HTN with superimposed preeclampsia. Recommend ASA 81mg PO once daily for prevention. 3) Completed 2hr glucose test and was normal per patient on 09/17/21, requesting results 4) GC/CT testing not done, patient declines 5) Declines physical exam today. Fundal height elevated. Had early US at center and was informed CALEB was consistent with LMP and also one fetus. 6) Reviewed elevated BP today and would recommend evaluation in triage for labs and BP evaluation. agrees with plan 7) Consult MFM due to chronic HTN 8) Reviewed with patient I would not recommend a home due to chronic HTN and that IOL would be recommend at 39 weeks. Discussed recommendation for growth US starting at 32 weeks, weekly NST, and further evaluation due to history and limited PN care. To keep BP log twice daily and send beginning of next week. Preeclampsia signs and symptoms reviewed and when to call. If patient till desires a home against medical advice we are still willing to provide care for her during the . Patient gave consent to talk with her director of assessing. Follow up in 1 weeks or sooner prn with a physician. Miguel Rm APRN.CNM documented in this encounter[facility]08-19-[facility]22 Instructions* Patient Instructions* Miguel Rm APRN.CNM - 11/07/2021 1:18 PM EDT Please select the following link to access the [facility] Your Guide to a Healthy . [email or web address] Please send blood pressure record for twice daily blood pressures end of next week. Recommend Aspirin 81mg by mouth once daily for elevated blood pressure. This can help prevent preeclampsia [employer]ians [employer] Gynec[employer] (ACOG) - ACOG has recommended utilizing 140/90 mmHg as the threshold for initiation or titration of medical therapy for chronic hypertension in , rather than the previously recommended threshold of 160/110 mmHg [65]. ACOG has not made spec [facility] recommendations for women with end-organ involvement. Screening for growth restriction -- Screening for growth restriction (FGR) in women with chronic hypertension is to perform serial ultrasound examinations to monitor growth every three to four weeks. We initiate sonographic screening for FGR at 28 to 32 weeks. As chronic hypertension has been consistently demonstrated to confer an increased risk for stillbirth ) and most studies have not distinguished between severe or mild hypertensive disease, we performroutine surveillance on all pregnancies complicated by chronic hypertension. We initiate twice weekly surveillance at 32 weeks of gestation.Twice weekly rather than weekly testing is performed routinely based on limited evidence suggesting a reduction in deaths with frequenttesting. This would be done as a Non Stress Test where we put you on the monitor to listen to the baby's heart beat and usually lasts about 20 minutes. RISKS OF CHRONIC HYPERTENSION IN -- Chronic hypertension and cardiovascular disease are among the leading causes of maternal and / morbidity and mortality. Superimposed preeclampsia, which develops in 13 to 40 percent of women with chronic hypertension, is associatedwith higher rates of adverse outcomes. The frequency of adverse outcomes is difficult to cite precisely because reports do not uniformly distinguish between pregnancies complicated by superimposed preeclampsia and those with uncomplicatedchronic hypertension alone. Where possible, we will review outcomes of patients with chronic hypertension alone, acknowledging that most analyses combine these outcomes with those in patients with superimposed preeclampsia. Maternal risks -- Population-based studies, as well as systematic reviews and meta-analyses, consistently demonstrate an increased risk of adverse maternal outcomes associated with chronic hypertension in . The risk increases with the severity of hypertension and presence of end-organ damage. Although therelative risks (RR) for these complications are significantly increased, the absolute risk for serious end-organ damage (eg, heart, kidney, brain) is low in the absence of preeclampsia or uncontrolled hypertension. Obesity may be a confounder since it is associated with hypertension, diabetes, insulin resistance, chronic inflammation, and endothelial dysfunction. ?Acute kidney failure - 5.9 per 1000 deliveries ?Pulmonary edema - 1.5 per 1000 deliveries ?Superimposed preeclampsia - 13 to 40 percent ?In-hospital mortality - 0.4 per 1000 deliveries ?Stroke/cerebrovascular complications - 2.7 per 1000 deliveries ? delivery - Estimated prevalence 41.4 percent ?Placental abruption with the highest risk in patients with superimposed preeclampsia ? hemorrhage ?Gestational diabetes - 8.1 percent likely reflecting common risk factors, such as obesity, and similar pathogenic mechanisms, such as insulin resistance ?Hospitalization - Mean inpatient length of stay for chronic hypertension without preeclampsia / risks -- Rates of adverse outcomes are higher with longer duration and greater severity of maternal hypertension, presence of end- organ damage, and occurrence of superimposedpreeclampsia. ? mortality - mortality is two to four times higher in pregnancies complicated by chronic hypertension compared with pregnancies in the general obstetric population, and the increase persists after adjusting for preeclampsia and weight. The increase in mortality is likely attributable to increases in indicated and growth restriction (FGR). ? , low weight, intensive care unit admission delivery <37 weeks weight <2500 grams Newborns admitted to the intensive care unit ?Small for gestational age ?Congenital malformationsAs chronic hypertension has been consistently demonstrated to confer an increased risk for stillbirth (see '/ risks' above) and most studies have not distinguished between severe or mild hypertensive disease, we perform routine surveillance on all pregnancies complicated by chronic hypertension. We initiate twice weekly surveillance at 32 weeks ofgestation because routine surveillance is unlikely to improve outcomes when implemented earlier in gestation [69]. Twice weekly rather than weekly testing is performed routinely basedon limited evidence suggesting a reduction in deaths with frequent testing [70]. Testing may be started earlier and performed more frequently in patients thought to be at high risk of early stillbirth. ACOG recommends surveillance for individuals with chronic hypertension who need medication or who have growth restriction, superimposed preeclampsia, or underlying medical conditions that may affect outcome, as these pregnancies are at increased risk forfetal demise [71,72]. For patients with hypertension that is well- controlled with medication, they suggest weekly testing beginning at 32 weeks; initiation and frequency of testing are individualizedfor patients with poorly controlled hypertension. documented in this encounterPome[facility] Hospital08-17-2022 Miscellaneous Notes* Telephone Encounter - Licha Tafoya RN - 11/05/2021 1:40 PM EDT PSS: Please contact patient to schedule below appointment. Appointment slots on hold for New OB with Miguel Rm 1:15-2 and anatomy ultrasound at 230. Thank you. * Telephone Encounter - Miguel Rm APRN.CNM - 11/05/2021 1:03 PM EDT Order signed. Thank you, Miguel Rm APRN.CNM * Telephone Encounter - Zayda White RN - 11/04/2021 11:29 AM EDT OB patient is to see Miguel Rm this week for initial visit and anatomy US. Patient is being seen for cocare. Patient is religous self pay. Will need her information updated and referral placed. We placed Tuesday 11/07 1:15-2:00 with MARCO ANTONIO and anatomy US at 2:30 PM on hold. Patient agreeable to thesetimes. Attempted to connect patient with a PSS to update information and place referral. Longer than normal wait time. PSS- Please call patient and assist with updating information, place referral for OB visit and Anatomy US. Thank you. Zayda White RN documented in this encounterPomerene Hospital04-20-2021 NoteProcedure (WHREBA) KEITH REYNA I ([id number]) 1995 F Date Time Provider Department 07/09/20 9:30 AM JONES HERNANDEZ During your visit today, we recorded the following information about you: Referring Provider: SABRINA DUBON) [[id number]] Allergies As of Date: 07/09/2020 Noted Allergy Reaction BACTRIM (SULFAMETHOXAZOLE) 03/20/2014 2 - Rash Comments: as a baby Date Reviewed: 03/08/2020 Reviewed by: Lissette Miller Ma - Fully Assessed Reason for Visit: Ovarian Cyst [288] Primary Visit Diagnosis:Cyst of ovary, unspecified laterality [N83.209] Prescriptions as of 07/09/2020 Sig: IBUPROFEN 200 MG TABLET Take 400 mg by mouth every 6 * ACETAMINOPHEN 500 MG TABLET Take 500 mg by mouth every 8 * Problem List As Of Date 07/09/2020 Noted Resolved Elevated blood pressure reading without diagnos*01/18/2015 Encounter Status:Closed by JONES HERNANDEZ MD on 07/10/20[facility]01-12-2021 NoteProcedure (WHREBA) KEITH REYNA I ([id number]) 1995 F Date Time Provider Department 04/02/20 9:00 AM JONES HERNANDEZ During your visit today, we recorded the following information about you: Referring Provider: SABRINA DUBON (STEPHANIE) [[id number]] Allergies As of Date: 04/02/2020 Noted Allergy Reaction BACTRIM (SULFAMETHOXAZOLE) 03/20/2014 2 - Rash Comments: as a baby Date Reviewed: 03/08/2020 Reviewed by: Lissette Miller Ma - Fully Assessed Reason for Visit: Menorrhagia [279] Primary Visit Diagnosis:Excessive bleeding in premenopausal period [N92.4] Prescriptions as of 04/02/2020 Sig: IBUPROFEN 200 MG TABLET Take 400 mg by mouth every 6 * ACETAMINOPHEN 500 MG TABLET Take 500 mg by mouth every 8 * Problem List As Of Date 04/02/2020 Noted Resolved Elevated blood pressure reading without diagnos*01/18/2015 Encounter Status:Closed by JONES HERNANDEZ MD on 04/03/20[facility] [place] [facility]* Diagnosis Supervision of high risk in third trimester- Primary Unspecified high-risk documented in this encounter [facility] note* Diagnosis Encounter for anatomic survey- Primary Obesity complicating , third trimester documented in this encounter [facility] note* Diagnosis Late care affecting , antepartum- Primary Supervision of high risk in third trimester Unspecified high-risk HTN in , chronic Benign essential hypertension complicating , childbirth, and the puerperium, unspecified as to episode of care Neurofibromatosis, peripheral, NF1 (HCC) Neurofibromatosis, Type 1 (von Recklinghausen's disease) Obesity in Obesity complicating , childbirth, or the puerperium, unspecified as to episode of care or not applicable Elevated blood pressure reading without diagnosis of hypertension documented in this encounter [facility] note* Diagnosis Obesity in - Primary Obesity complicating , childbirth, or the puerperium, unspecified as to episode of care or not applicable Neurofibromatosis, peripheral, NF1 (HCC) Neurofibromatosis, Type 1 (von Recklinghausen's disease) Supervision of high risk in third trimester Unspecified high-risk HTN in , chronic Benign essential hypertension complicating , childbirth, and the puerperium, unspecified as to episode of care documented in this encounter [facility] note* Diagnosis Chronic hypertension in - Primary Benign essential hypertension complicating , childbirth, and the puerperium, unspecified as to episode of care Neurofibromatosis, peripheral, NF1 (HCC) Neurofibromatosis, Type 1 (von Recklinghausen's disease) Obesity in Obesity complicating , childbirth, or the puerperium, unspecified as to episode of care or not applicable Supervision of high risk in third trimester Unspecified high-risk documented in this encounter [facility] note* Diagnosis Obesity in Obesity complicating , childbirth, or the puerperium, unspecified as to episode of care or not applicable Neurofibromatosis, peripheral, NF1 (HCC) Neurofibromatosis, Type 1 (von Recklinghausen's disease) Supervision of high risk in third trimester Unspecified high-risk HTN in , chronic Benign essential hypertension complicating , childbirth, and the puerperium, unspecified as to episode of care documented in this encounter [facility] note* Diagnosis Cyst of ovary, unspecified laterality- Primary documented in this encounter [facility] note* Diagnosis hypertension- Primary Unspecified hypertension, condition or complication Thrush Candidiasis of mouth documented in this encounter [facility] noteN/ADept. of Dermatology Evaluation note* Diagnosis hypertension- Primary Unspecified hypertension, condition or complication Dizzy spells Dizziness and giddiness External hemorrhoid External hemorrhoids without mention of complication documented in this encounter [facility] note* Diagnosis Supervision of high risk in third trimester- Primary Unspecified high-risk documented in this encounter [facility] note* Diagnosis Encounter for gynecological examination (general) (routine) with abnormal findings- Primary Endometrioma of ovary Endometriosis of ovary Hemorrhoids, unspecified hemorrhoid type Fecal smearing documented in this encounter [facility] for referral (narrative)* Diagnostic Procedure Only (Routine) - Authorized Specialty Diagnoses / Procedures Referred By Justino sherman Referred To Contact [facility] Diagnoses Supervision of high risk in third trimester Procedures OBSTETRIC ULTRASOUND WHI US PREG UTERUS AFTER 1ST TRIMEST GESTATION Miguel Rm APRN.CNM [address] [place] [address] [facility] [address] [place] [id number] Referral ID Status Reason Start Date Expiration Date Visits Requested Visits Authorized [id number] Authorized Auto-Generate d Referral OON/Self Pay Override Financial Clearance Required - Self Pay Patient Cleared - [facility] 11/05/2021 11/04/2022 2 2 [facility] for referral (narrative)* Name Reason for referral NA NA Dept. of Dermatology Summary Purpose Family History No Family History Records FoundNo Family History Records FoundNo Family History Records FoundNo Family History Records FoundNo Family History Records Found Advance Directives No Advanced Directives Records FoundNo Advanced Directives Records FoundNo Advanced Directives Records FoundNo Advanced Directives Records FoundNo Advanced Directives Records Found Health Concerns Problem Noted Date OB Reminders 11/07/2021 Problem Noted Date OB Reminders 11/07/2021 Problem Noted Date OB Reminders 11/07/2021 Problem Noted Date OB Reminders 11/07/2021 Problem Noted Date OB Reminders 11/07/2021 Problem Noted Date OB Reminders 11/07/2021 Problem Noted Date OB Reminders 11/07/2021 Problem Noted Date OB Reminders 11/07/2021 Problem Noted Date OB Reminders 11/07/2021 Problem Noted Date OB Reminders 11/07/2021 Problem Noted Date OB Reminders 11/07/2021 Problem Noted Date OB Reminders 11/07/2021 Problem Noted Date OB Reminders 11/07/2021 Problem Noted Date OB Reminders 11/07/2021 Reason for Referral Specialty Diagnoses / Procedures Referred By Justino sherman Referred To Contact Diagnoses Late care affecting , antepartum Supervision of high risk in third trimester HTN in , chronic Neurofibromatosis, peripheral, NF1 (HCC) Procedures CONSULT TO MATERNAL MEDI OFFICE/OUTPATIENT NEW HIGH MDM 60-74 MINUTES Miguel Rm APRN.CNM [address] [place] [address] Referral ID Status Reason Start Date Expiration Date Visits Requested Visits Authorized [id number] Authorized PCP Requested Referral Auto-Generate d Referral 11/11/2021 11/07/2022 1 1 Specialty Diagnoses / Procedures Referred By Justino sherman Referred To Contact [facility] Diagnoses Supervision of high risk in third trimester Procedures OBSTETRIC ULTRASOUND WHI US PREG UTERUS AFTER 1ST TRIMEST 1 GESTATION Miguel Rm APRN.CNM [address] [place] [address] [facility] [address] [place] [address] Referral ID Status Reason Start Date Expiration Date Visits Requested Visits Authorized [id number] Pending Review Auto-Generat ed Referral 11/07/2021 11/07/2022 1 1 Specialty Diagnoses / Procedures Referred By Leeac t Referred To Contact [facility] Diagnoses 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, peripheral, NF1 (HCC) Supervision of high risk in third trimester HTN in , chronic Procedures CONSULT TO MATERNAL MEDI OFFICE/OUTPATIENT NEW HIGH MDM 60-74 MINUTES Miguel Rm APRN.CNM [address] [place] [address] [employer] [address] [place] [address] Referral ID Status Reason Start Date Expiration Date V isits Requested Visits Authorized [id number] Closed PCP Requested Referral Auto-Generated Referral OON/Self Pay Override 12/29/2021 12/29/2022 1 1 Specialty Diagnoses / Procedures Referred By Justino t Referred To Contact [facility] Diagnoses 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, peripheral, NF1 (HCC) Supervision of high risk in third trimester HTN in , chronic Procedures BIOPHYSICAL PROFILE US WHI BIOPHYSICAL PROFILE NON-STRESS TESTING Miguel Rm APRN.CNM [address] [place] [address] [facility] [address] [place] [id number] Referral ID Status Reason Start Date Expiration Date Visits Requested Visits Authorized [id number] Pending Review Auto-Generat ed Referral OON/Self Pay Override 12/29/2022 10 1 Specialty Diagnoses / Procedures Referred By Contact Referred To Contact [facility] Diagnoses Hemorrhoids, unspecified hemorrhoid type Fecal smearing Procedures CONSULT TO GASTROENTEROLOGY OFFICE/OUTPATIENT NEW HIGH MDM 60-74 MINUTES Miguel Rm APRN.CNM [address] [place] [address] [facility] [employer] [place] [address] Referral ID Status Reason Start Date Expiration Date Visits Requested Visits Authorized [id number] Authorized Patient Cleared - [facility] 3 03/01/2024 1 1 Specialty Diagnoses / Procedures Referred By Contac t Referred To Contact [facility] Diagnoses Endometrioma of ovary Procedures US FEMALE PELVIS TRANSVAG US TRANSVAGINAL Miguel Rm APRN.CN [address] [place] [address] [place] [id number] Referral ID Status Reason Start Date Expiration Date Visits Requested Visits Authorized [id number] Authorized Financial Clearance Required - Self Pay Patient Cleared - [facility] 3 03/31/2024 1 1 Additional Source Comments INFORMATION SOURCE (unrecogn ized section and content) DATE CREATED AUTHOR AUTHOR'S ORGANIZ ATION [facility]/14/2019 [facility] DATE CREATED AUTHOR AUTHOR'S ORGANIZ ATION 07/12/2020 [facility] DATE CREATED AUTHOR AUTHOR'S ORGANIZ ATION 04/27/2022 [facility] DATE CREATED AUTHOR AUTHOR'S ORGANIZ ATION 03/10/2023 [facility] Source Comments (unrecognize d section and content) In the event this informatio n is protected by the Federal Confidentiality of Alcohol and Drug Abuse Patient Records regulations: The Federal rules restrict any use of the information to criminally investigate or prosecute any alcohol or drug abuse patient.[facility] HospitalIn the event this information is protected by the Federal Confidentiality of Alcohol and Drug Abuse Patient Records regulations: The Federal rules restrict any use of the information to criminally investigate or prosecute any alcohol or drug abuse patient.[facility] HospitalIn the event this information is protected by the Federal Confidentiality of Alcohol and Drug Abuse Patient Records regulations: The Federal rules restrict any use of the information to criminally investigate or prosecute any alcohol or drug abuse patient.[facility] HospitalIn the event this information is protected by the Federal Confidentiality of Alcohol and Drug Abuse Patient Records regulations: The Federal rules restrict any use of the information to criminally investigate or prosecute any alcohol or drug abuse patient.[facility] HospitalIn the event this information is protected by the Federal Confidentiality of Alcohol and Drug Abuse Patient Records regulations: The Federal rules restrict any use of the information to criminally investigate or prosecute any alcohol or drug abuse patient.[facility] HospitalIn the event this information is protected by the Federal Confidentiality of Alcohol and Drug Abuse Patient Records regulations: The Federal rules restrict any use of the information to criminally investigate or prosecute any alcohol or drug abuse patient.[facility] HospitalIn the event this information is protected by the Federal Confidentiality of Alcohol and Drug Abuse Patient Records regulations: The Federal rules restrict any use of the information to criminally investigate or prosecute any alcohol or drug abuse patient.[facility] HospitalIn the event this information is protected by the Federal Confidentiality of Alcohol and Drug Abuse Patient Records regulations: The Federal rules restrict any use of the information to criminally investigate or prosecute any alcohol or drug abuse patient.[facility] HospitalIn the event this information is protected by the Federal Confidentiality of Alcohol and Drug Abuse Patient Records regulations: The Federal rules restrict any use of the information to criminally investigate or prosecute any alcohol or drug abuse patient.[facility] HospitalIn the event this information is protected by the Federal Confidentiality of Alcohol and Drug Abuse Patient Records regulations: The Federal rules restrict any use of the information to criminally investigate or prosecute any alcohol or drug abuse patient.[facility] HospitalIn the event this information is protected by the Federal Confidentiality of Alcohol and Drug Abuse Patient Records regulations: The Federal rules restrict any use of the information to criminally investigate or prosecute any alcohol or drug abuse patient.[facility] HospitalIn the event this information is protected by the Federal Confidentiality of Alcohol and Drug Abuse Patient Records regulations: The Federal rules restrict any use of the information to criminally investigate or prosecute any alcohol or drug abuse patient.[facility] HospitalIn the event this information is protected by the Federal Confidentiality of Alcohol and Drug Abuse Patient Records regulations: The Federal rules restrict any use of the information to criminally investigate or prosecute any alcohol or drug abuse patient.[facility] HospitalIn the event this information is protected by the Federal Confidentiality of Alcohol and Drug Abuse Patient Records regulations: The Federal rules restrict any use of the information to criminally investigate or prosecute any alcohol or drug abuse patient.[facility] HospitalIn the event this information is protected by the Federal Confidentiality of Alcohol and Drug Abuse Patient Records regulations: The Federal rules restrict any use of the information to criminally investigate or prosecute any alcohol or drug abuse patient.[facility] HospitalIn the event this information is protected by the Federal Confidentiality of Alcohol and Drug Abuse Patient Records regulations: The Federal rules restrict any use of the information to criminally investigate or prosecute any alcohol or drug abuse patient.[facility] HospitalIn the event this information is protected by the Federal Confidentiality of Alcohol and Drug Abuse Patient Records regulations: The Federal rules restrict any use of the information to criminally investigate or prosecute any alcohol or drug abuse patient.[facility] HospitalIn the event this information is protected by the Federal Confidentiality of Alcohol and Drug Abuse Patient Records regulations: The Federal rules restrict any use of the information to criminally investigate or prosecute any alcohol or drug abuse patient.[facility] HospitalIn the event this information is protected by the Federal Confidentiality of Alcohol and Drug Abuse Patient Records regulations: The Federal rules restrict any use of the information to criminally investigate or prosecute any alcohol or drug abuse patient.[facility] Reason for Visit (unrecogniz ed section and content) Reason Comments US Specialty Diagnoses / Procedures Referred By Contac t Referred To Contact [facility] Diagnoses Supervision of high risk in third trimester Procedures OBSTETRIC ULTRASOUND WHI US PREG UTERUS AFTER 1ST TRIMEST GESTATION Miguel Rm APRN.CNM [address] [place] [address] [facility] [place] [address] Referral ID Status Reason Start Date Expiration Date V isits Requested Visits Authorized [id number] Closed Auto-Generated Referral OON/Self Pay Override Financial Clearance Required - Self Pay Patient Cleared - [facility] 11/05/2021 11/04/2022 2 2 Reason Comments Opened In Error Reason Comments Care Specialty Diagnoses / Procedures Referred By Contac t Referred To Contact [facility] Diagnoses Supervision of high risk in third trimester Procedures OBSTETRIC ULTRASOUND WHI US PREG UTERUS AFTER 1ST TRIMEST GESTATION Miguel Rm APRN.CNM [address] [place] [address] [facility] [employer] [address] [place] [address] Reason Comments Appointment Specialty Diagnoses / Procedures Referred By Contac t Referred To Contact [facility] Diagnoses Procedures OB ASSESSMENT Miguel mR APRN.CNM [address] [place] [address] [employer] [address] [place] [address] Referral ID Status Reason Start Date Expiration Date V isits Requested Visits Authorized [id number] Closed OON/Self Pay Override Patient Cleared - [facility] 12/29/2021 03/29/2022 1 1 Specialty Diagnoses / Procedures Referred By Contac t Referred To Contact [facility] Diagnoses 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, peripheral, NF1 (HCC) Supervision of high risk in third trimester HTN in , chronic Procedures CONSULT TO MATERNAL MEDI OFFICE/OUTPATIENT NEW HIGH MDM 60-74 MINUTES Miguel Rm APRN.CNM [address] [place] [address] [employer] [address] [place] [address] Referral ID Status Reason Start Date Expiration Date V isits Requested Visits Authorized [id number] Closed PCP Requested Referral Auto-Generated Referral OON/Self Pay Override 12/29/2021 12/29/2022 1 1 Reason Comments Ob Delivery Note Reason Comments Ovarian Cyst Specialty Diagnoses / Procedures Referred By Contac t Referred To Contact [facility] Diagnoses ULTRASOUND Procedures ULTRASOUND Mehul Salazar MD [address] [place] [address] [employer] [address] [place] [address] Referral ID Status Reason Start Date Expiration Date V isits Requested Visits Authorized [id number] Closed Financial Clearance Required - OON Payor Patient Cleared - [facility] 02/11/2022 03/21/2022 1 1 Reason Comments Appointment Reason Comments Establish Care Hypertension Specialty Diagnoses / Procedures Referred By Contac t Referred To Contact [facility] Diagnoses Est Care ok per Merari Procedures Est Care Self Famp [facility] [address] [place] [address] Referral ID Status Reason Start Date Expiration Date V isits Requested Visits Authorized [id number] Closed Patient Cleared - [facility] 03/24/2022 06/16/2022 1 1 Reason Comments Medication Question Reason Comments Medication Problem Blood Pressure Reason Comments BP Check Specialty Diagnoses / Procedures Referred By Contac t Referred To Contact [facility] Diagnoses f/u Procedures f/u Skinny Childs, DO [address] [place] [address] [facility] [address] [place] [address] Referral ID Status Reason Start Date Expiration Date V isits Requested Visits Authorized [id number] Closed Patient Cleared - [facility] 03/27/2022 06/25/2022 1 1 Reason Comments Us Procedure Specialty Diagnoses / Procedures Referred By Contac t Referred To Contact [facility] Diagnoses FOLLOW UP ULTRASOUND Procedures FOLLOW UP ULTRASOUND Mehul Salazar MD [address] [place] [address] [employer] [address] [place] [address] Referral ID Status Reason Start Date Expiration Date V isits Requested Visits Authorized [id number] Closed Financial Clearance Required - OON Payor Patient Cleared - [facility] 02/11/2022 03/21/2022 2 2 Care Teams (unrecognized sec tion and content) Pan Shaker Relationship Specialty Start Date End Date Ry Fleming MD [address] [facility] [address] [place] [address] PCP - General Family Practice 08/09/15 Pan Shaker Relationship Specialty Start Date End Date Ry Fleming MD [address] [facility] [address] [place] [address] PCP - General Family Practice 08/09/15 Pan Shaker Relationship Specialty Start Date End Date Ry Fleming MD [address] [facility] [address] [place] [address] PCP - General Family Practice 08/09/15 Pan Shaker Relationship Specialty Start Date End Date yR Fleming MD [address] [facility] [place] [address] PCP - General Family Medicine 08/09/15 Pan Shaker Relationship Specialty Start Date End Date Ry Fleming MD [address] [facility] [place] [address] PCP - General Family Medicine 08/09/15 Pan Shaker Relationship Specialty Start Date End Date Ry Fleming MD [address] [facility] [address] [place] [address] PCP - General Family Medicine 08/09/15 Pan Shaker Relationship Specialty Start Date End Date Ry Fleming MD [address] [facility] [address] [place] [address] PCP - General Family Medicine 08/09/15 Pan Shaker Relationship Specialty Start Date End Date Ry Fleming MD [address] [facility] [address] [place] [address] PCP - General Family Medicine 08/09/15 Pan Shaker Relationship Specialty Start Date End Date Ry Fleming MD [address] [facility] [address] [place] [address] PCP - General Family Medicine 08/09/15 03/23/22 Skinny Childs, DO [address] [facility] [place] [address] PCP - General Family Medicine 03/24/22 Pan Shaker Relationship Specialty Start Date End Date Ry Fleming MD [address] [facility] [address] [place] [address] PCP - General Family Medicine 08/09/15 03/23/22 Skinny Childs, DO [address] [facility] [place] [address] PCP - General Family Medicine 03/24/22 Pan Shaker Relationship Specialty Start Date End Date Skinny Childs, DO [address] [facility] [place] [address] PCP - General Family Medicine 03/24/22 Pan Shaker Relationship Specialty Start Date End Date Skinny Childs, DO [address] [facility] [place] [address] PCP - General Family Medicine 03/24/22 Pan Shaker Relationship Specialty Start Date End Date Skinny Childs, DO [address] [facility] [place] [address] PCP - General Family Medicine 03/24/22 Pan Shaker Relationship Specialty Start Date End Date Skinny Childs, DO [address] [place] [address] PCP - General Family Medicine 03/24/22 Pan Shaker Relationship Specialty Start Date End Date Ry Fleming MD [address], [place] [id number] PCP - General Family Medicine 08/09/15 03/23/22 Pan Shaker Relationship Specialty Start Date End Date Skinny Childs Candida, DO [address] [facility] [place] [address] PCP - General Family Medicine 03/24/22 FOR RECORDS PERTAINING TO PATIENTS WHO ARE OR HAVE BEEN ENROLLED IN A CHEMICAL DEPENDENCY/SUBSTANCEABUSE PROGRAM, SOME INFORMATION MAY BE OMITTED. This clinical summary was aggregated from multiple sources. Caution should be exercised in using it in the provision of clinical care. This summary normalizes information from multiple sources, and as a consequence, information in this document may materially change the coding, format and clinical context of patient data. In addition, data may be omitted in some cases. CLINICAL DECISIONS SHOULD BE BASED ON THE PRIMARY CLINICAL RECORDS. [employer] [facility] provides no warranty or guarantee of the accuracy or completeness of information in this document.
[2023-03-18] MEDS: Morphine 4 MG/ML Syringe 6 MG IV (16:03)
[2023-03-18] MEDS: Ondansetron 4 MG/2 ML Vial IV ×2 (16:03→19:12)
[2023-03-18 16:12] LABS: Absolute Lymphocyte Count 0.69 X10^3/uL (0.83-4.51); Basophil# 0.06 X10^3/uL; Basophil% 0.3 % (0-1); Eosinophil# 0.04 X10^3/uL; Eosinophils% 0.2 % (0-5); Hemoglobin 15.5 g/dL (12.0-15.0); Lymphocyte # 0.69 X10^3/ul (0.83-4.51); Lymphocyte % 3.4 % (19-41); Mean Corp Hgb Conc 33.7 g/dL (32-36); Mean Corpuscular Hgb 30.2 pg (27.0-32.0); Mean Corpuscular Volume 89.7 fL (81-99); Mean Platelet Vol. 10.1 fl (6.2-12.0); Monocyte# 0.48 X10^3/uL; Monocyte% 2.4 % (0-10); NRBC Flagged by Analyzer 0 % (0-5); Neutrophil # 19.02 X10^3/uL (2.7-7.7); Neutrophil % 93.4 % (47-70); Platelet Count 210 K/mm3 (150-450); RBC Distribution Width SD 39.3 fl (35.1-43.9); Red Blood Count 5.13 M/mm3 (4.2-5.4); White Blood Count 20.4 K/mm3 (4.4-11.0)
[2023-03-18 16:24] LABS: Internal QC Validated? YES +Cl - CLEAR BKGD; Pregnancy, Serum, hCG Quali. NEGATIVE Negative
[2023-03-18 16:43] LABS: Anion Gap 9 (5-15); BUN 20 mg/dL (7-18); BUN/Creat Ratio 22.7 RATIO (10-20); Calcium,Total 9.7 mg/dL (8.5-10.1); Chloride 108 mmol/L (98-107); Creatinine, Serum 0.88 mg/dL (0.55-1.02); EST Glomerular Filtration Rate 81 mL/min (>60); Est Glom Filt Rate - Afr Amer 98 mL/min (>60); Glucose 119 mg/dL (74-106); Potassium 3.8 mmol/L (3.5-5.1); Sodium Level 140 mmol/L (136-145)
[2023-03-18 18:00] VITALS: BP 127/68; PULSE 71; RESP 15; O2SAT 97
[2023-03-18 18:03] LABS: Bacteria 0 SEEN /hpf (None Seen); Red Blood Cells-Urine 0 SEEN /hpf (0-5); Squamous Epithelial Cells - UA 0 SEEN /hpf (5-10); White Blood Cells 0 SEEN /hpf (0-5)
[2023-03-18 18:07] LABS: Color, Urine Yellow (Yellow); Glucose, Dipstick Normal (Normal); Leukocyte Esterase-Dipstick Negative /ul (Negative); Nitrite-Dipstick Negative (Negative); Occult Blood-Urine 10 /ul (Negative); Protein-Dipstick 30 mg/dl (Negative); Urine Bilirubin Dipstick Negative (Negative); Urine Clarity Clear (Clear); Urine Urobilinogen Normal (Normal)
[2023-03-18 18:11] LABS: Ketone-Dipstick 150 mg/dl (Negative)
[2023-03-18 18:25] LABS: Mucous, Urine RARE /hpf (<or=2+)
[2023-03-18] MEDS: morphine 8 MG/ML Syringe 6 MG IV (19:13)
[2023-03-18] MEDS: Ketorolac 30 MG/ML Syringe IV (19:14)
[2023-03-18 19:28] VITALS: PULSE 68; RESP 15; O2SAT 98
== END 2023-03-18 19:28 | disposition home or self-care (01) ==
PROVIDERS: Emergency Provider Emergency Medicine; PCP Nurse Practitioner Family; Visit Provider Emergency Medicine
DX: R10.2 Pelvic and perineal pain (principal); D27.9 Benign neoplasm of unspecified ovary
CPT/HCPCS: 76830; 80048; 81001; 84703; 85025; 96374; 96375; 96376; 99283; J7030; A4216; J2405